=== PATIENT | male | born 1935 | race Caucasian/White ===

== ENCOUNTER 2018-04-16 15:00 | Inpatient (IN) ==
[2018-04-16] MEDS ORDERED: LORazepam 0.5 MG Tablet PO PRN (22:13)
[2018-04-17] MEDS: Carvedilol 6.25 MG Tablet PO SCH ×3 (00:01→22:48)
[2018-04-17] MEDS: Ampicillin/Sulbactam Inj 1,500 MG in Sodium Chloride 0.9% Inj 100 ML IV.SIG SCH ×4 (00:01→18:40)
[2018-04-17] MEDS: Melatonin 5 MG Tablet PO SCH ×2 (00:02→22:50)
[2018-04-17 00:06] LABS: Troponin I 0.2 ng/mL (0.02-0.05)
[2018-04-17 01:35] LABS: Calcium 8.4 mg/dL (8.5-10.1); Magnesium 2.4 mg/dL (1.5-2.5); Potassium 4.6 meq/L (3.5-5.1)
[2018-04-17 01:45] LABS: Carbon Dioxide 26.5 meq/L (21.0-32.0)
[2018-04-17] MEDS ORDERED: Metoprolol Tartrate 25 MG Tablet PO ONE (04:04)
[2018-04-17 04:39] LABS: Baso # (Auto) 0.1 th/mm3 (0.0-0.2); Baso % (Auto) 0.7 % (0.0-2.0); Eos % (Auto) 0.3 % (0.0-4.0); Hematocrit 30.4 % (39.0-51.0); Hemoglobin 10.3 gm/dL (13.0-17.0); Lymph # (Auto) 0.4 th/mm3 (1.0-4.8); Lymph % (Auto) 5.1 % (9.0-44.0); Mean Corpuscular HGB Conc 33.8 % (32.0-36.0); Mean Corpuscular Hemoglobin 30.7 pg (27.0-34.0); Mean Corpuscular Volume 90.8 fL (80.0-100.0); Mean Platelet Volume 7.4 fL (7.0-11.0); Mono # (Auto) 0.9 th/mm3 (0.0-0.9); Mono % (Auto) 10.6 % (0.0-8.0); Neut # (Auto) 7.1 th/mm3 (1.8-7.7); Neut % (Auto) 83.3 % (16.0-70.0); Platelet Count 425 th/mm3 (150-450); Red Blood Count 3.35 mil/mm3 (4.50-5.90); Red Cell Distribution Width 14.3 % (11.6-17.2); White Blood Count 8.5 th/mm3 (4.0-11.0)
[2018-04-17 05:07] LABS: Calcium 8.8 mg/dL (8.5-10.1); Carbon Dioxide 27.6 meq/L (21.0-32.0); Potassium 4.9 meq/L (3.5-5.1)
[2018-04-17 05:10] LABS: Troponin I 0.19 ng/mL (0.02-0.05)
[2018-04-17] MEDS: Isosorbide Mononitrate 30 MG ER 24HR Tablet (Imdur) PO SCH (06:25)
[2018-04-17] MEDS: Famotidine 20 MG Tablet PO SCH ×2 (08:34→22:49)
[2018-04-17] MEDS: Sodium Bicarbonate 650 MG Tablet PO SCH ×3 (08:34→18:41)
[2018-04-17] MEDS: Nystatin Liq 500,000 UNIT/5 ML UDC SWISH-SWAL SCH ×4 (08:34→22:49)
[2018-04-17] MEDS: amLODIPine 5 MG Tablet PO SCH (08:35)
[2018-04-17] MEDS: Senna/Docusate Sodium 8.6/50 MG Tablet PO SCH ×2 (08:35→22:50)
[2018-04-17] MEDS: Lisinopril 5 MG Tablet PO SCH (08:35)
[2018-04-17] MEDS: Heparin - SQ 10,000 UNITS/ML Vial SQ SCH ×2 (08:36→22:49)
[2018-04-17] MEDS ORDERED: Gabapentin 100 MG Capsule PO SCH (09:00)
[2018-04-17] MEDS ORDERED: Insulin Detemir Inj 1,000 UNIT/10 ML Vial SQ SCH (09:00)
--- NOTE | 2018-04-17 13:26 | XR ---
EXAM DATE: 04/17/2018 9:43 AM EDT AGE/SEX: 82 years / Male INDICATIONS: Short of breath. CLINICAL DATA: This is the patient's subsequent encounter. Patient reports that signs and symptoms h ave been present for 1 week and indicates a pain score of 0/10. MEDICAL/SURGICAL HISTORY: Hypertension. diabetes, shingles . Pacemaker. aortic valve replaceme nt COMPARISON: [facility], CHEST 1V SINGLE AP, 04/16/2018. . FINDINGS: Persistent bilateral effusions and patchy consolidation in the lower lobes. Median sternotomy wires a nd pacer device again seen. Cardiomegaly. CONCLUSION: Stable appearance of the chest. Electronically signed by: Syed Rosario MD 04/17/2018 9:46 AM EDT
--- NOTE | 2018-04-17 13:58 | P.HP ---
History of Present Illness Primary Care Physician: UNKNOWN History of Present Illness: 82-year-old male with a history of CHF, type 2 diabetes, TAVR procedure on 2017 was transferred from [facility] back to the hospital due to increased shortness of breath, chest pain, altered mental status. His TAVR procedure on came with complications, reports that he had to be resuscitated on the table more than once and that afterwards he had evidence that he suffered a stroke. He has had recurrent pulmonary edema, particularly in the right lung, paracentesis was performed yesterday. His reports that he received some tramadol overnight the night before last and that he has not been himself since then. Patient himself is a poor historian. There is no complaint of nausea vomiting or diarrhea. No new rash, no head trauma. Inpatient Certification: I certify that the inpatient services were ordered in accordance with Medicare regulations governing the order. This includes certification that hospital inpatient services are reasonable and necessary and in the case of services not specified as inpatient-only under 42 CFR 419.22(n), that they are appropriately provided as inpatient services in accordance to with the 2-midnight benchmark under 43 CFR 412.3(e) Estimated Total Length of Stay (Days): 3 Plans for Post Hospital Care: Other Review of Systems All other systems reviewed negative except as stated in HPI [facility] - History History Provided By: Family Member, Medical Record - Medical History Medical History: Medical History (Last Updated 04/14/18 @ 17:56 by Tigre Maria) CAD (coronary artery disease) CHF (congestive heart failure) CVA (cerebral vascular accident) Chronic kidney disease Diabetes Hyperlipidemia Hypertension Shingles - Surgical History Surgical History: Surgical History (Last Updated 04/14/18 @ 11:55 by Tigre Maria) Hx of CABG S/P TAVR (transcatheter aortic valve replacement) Status post placement of cardiac pacemaker - Family History Family History: Family History (Last Updated 04/14/18 @ 17:25 by Tigre Maria) Father Coronary artery disease Mother Diabetes mellitus - Tobacco History Second Hand Smoke Exposure: No Tobacco Use In Past 30 Days: No Smoking Status: Former smoker Tobacco Type: Cigarettes - Alcohol History How Often Do You Have a Drink Containing Alcohol: Never - Substance Use History Substance History: No History of Abuse - Travel History Recent Travel in the [facility] Within the Last 8 Weeks: No Recent Travel Out of the Country Within the Last 8 Weeks: No Medications and Allergies Active Medications: Active Medications Acetaminophen (Tylenol) 650 mg PO Q4H PRN PRN Reason: Temp > 100.4 Al Hydroxide/Mg Hydroxide (Milk Of Magnjazmyne Liq) 30 ml PO Q12H PRN PRN Reason: Mild Constipation Albuterol (Duoneb Neb (Prn)) 1 ampul NEB Q4HR NEB PRN PRN Reason: sob Amlodipine Besylate (Norvasc) 2.5 mg PO DAILY [facility] Last Admin: 04/17/18 08:35 Dose: 2.5 mg Aspirin (Aspirin Chew) 81 mg PO DAILY [facility] Last Admin: 04/17/18 08:35 Dose: 81 mg Carvedilol (Coreg) 6.25 mg PO BID [facility] Last Admin: 04/17/18 08:35 Dose: 6.25 mg Clopidogrel Bisulfate (Plavix) 75 mg PO DAILY [facility] Last Admin: 04/17/18 08:35 Dose: 75 mg Famotidine (Pepcid) 10 mg PO BID [facility] Last Admin: 04/17/18 08:34 Dose: 10 mg Furosemide (Lasix Inj) 40 mg IV.PUSH BID@0900,1800 [facility] Last Admin: 04/17/18 08:34 Dose: 40 mg Furosemide (Lasix Inj) 20 mg IV.PUSH BID@0900,1800 [facility] Last Admin: 04/17/18 08:10 Dose: Not Given Gabapentin (Neurontin) 200 mg PO DAILY [facility] Last Admin: 04/17/18 08:35 Dose: 200 mg Heparin Sodium (Porcine) (Heparin Inj) 5,000 units SQ Q12HR [facility] Last Admin: 04/17/18 08:36 Dose: 5,000 units Hydrophilic Ointment (Aquaphor Oint) 1 applicatio TOPICAL BID [facility] Last Admin: 04/17/18 08:36 Dose: 1 applicatio Ampicillin Sodium/Sulbactam Sodium 1,500 mg/ Sodium Chloride 100 mls @ 200 mls/ hr IV.SIG Q6H [facility] Last Admin: 04/17/18 12:21 Dose: 200 mls/hr Insulin Detemir (Levemir Inj) 10 unit SQ DAILY [facility] Last Admin: 04/17/18 08:36 Dose: 10 unit Isosorbide Mononitrate (Imdur) 30 mg PO DAILY@0700 [facility] Last Admin: 04/17/18 06:25 Dose: 30 mg Lactulose (Lactulose Liq) 30 ml PO DAILY PRN PRN Reason: Severe Consitipation Lisinopril (Prinivil) 5 mg PO DAILY [facility] Last Admin: 04/17/18 08:35 Dose: 5 mg Lorazepam (Ativan) 0.5 mg PO Q6H PRN PRN Reason: Anxiety Last Admin: 04/17/18 00:02 Dose: 0.5 mg Melatonin (Melatonin) 5 mg PO HS [facility] Last Admin: 04/17/18 00:02 Dose: 5 mg Nystatin (Mycostatin Liq) 5 ml SWISH-SWAL QID [facility] Last Admin: 04/17/18 12:22 Dose: 5 ml Ondansetron HCl (Zofran Inj) 4 mg IV.PUSH Q6H PRN PRN Reason: NAUSEA OR VOMITING Senna/Docusate Sodium (Tea-Colace) 1 tab PO BID [facility] Last Admin: 04/17/18 08:35 Dose: 1 tab Sennosides (Senokot) 17.2 mg PO Q12H PRN PRN Reason: Moderate Constipation Sodium Bicarbonate (Sodium Bicarbonate) 650 mg PO TIDPC [facility] Last Admin: 04/17/18 12:33 Dose: 650 mg Tamsulosin HCl (Flomax) 0.4 mg PO DAILY [facility] Last Admin: 04/17/18 08:35 Dose: 0.4 mg Allergies Allergy/AdvReac Type Severity Reaction Status Date / Time meperidine [From Demerol] Allergy Intermediate Hallucinati Verified 04/08/18 15: 38 ons codeine AdvReac Intermediate HALLUCINATI Verified 04/08/18 15:38 ON Home Medications Medication Instructions Recorded Confirmed Type dextran 70-hypromellose 1 drp LEFT EYE QID PRN 04/08/18 04/08/18 History [Artificial Tears (PF)] Exam Vital signs: Vital Signs 04/16/18 20:00 04/16/18 20:48 04/17/18 00:00 Temperature 98.9 F 98.5 F Pulse Rate 101 H 100 H 99 H Respiratory Rate 22 17 Blood Pressure 166/87 H 180/90 H Pulse Oximetry 94 L 96 04/17/18 04:00 04/17/18 08:00 04/17/18 11:44 Temperature 97.4 F L 97.7 F Pulse Rate 93 H 85 Respiratory Rate 17 22 Blood Pressure 160/77 H 127/71 Pulse Oximetry 92 L 96 96 Intake & Output 04/16/18 04/17/18 04/17/18 18:59 06:59 18:59 Intake Total 200 / 200 Output Total 1000 / 1000 Balance -800 / -800 Weight 75.4 kg Intake: IV 200 / 200 Unasyn Inj 1,500 MG In NS Inj 200 / 200 100 ML @ 200 mls/hr IV.SIG Q6H DIVYA Rx#:[id number] Output: Urine 1000 / 1000 Other: Weight On Admission 75 kg Narrative: GENERAL: Sleepy but arousable, oriented 2, tachypnea, weak appearing SKIN: Warm and dry, no rashes. HEAD: Atraumatic. Normocephalic. EYES: Pupils equal, round, reactive to light. No scleral icterus. No injection or drainage. ENT: No nasal bleeding or discharge. Moist mucous membranes. Nonerythematous oropharynx. NECK: Trachea midline. No JVD. Thyroid size within normal limits. CARDIOVASCULAR: Borderline tachycardia, sinus rhythm. No murmur, no gallops, no rubs. RESPIRATORY: Clear and equal to auscultation bilaterally. Mild atelectasis in bases. No accessory muscle use. GASTROINTESTINAL: Abdomen soft, non-tender, nondistended, normal active bowel sounds. Hepatic and splenic margins not palpable. MUSCULOSKELETAL: Extremities without clubbing or cyanosis. No obvious deformities. No edema. NEUROLOGICAL: Mostly sleepy, arousable, left subtle facial droop, right-sided weakness from previous stroke PSYCHIATRIC: Confused off his baseline according to his Results - Labs CBC & Chem 7: 04/17/18 03:25 04/17/18 03:25 Labs: Laboratory Results - last 24 hr 04/16/18 04/16/18 04/16/18 21:11 23:02 23:02 WBC RBC Hgb Hct MCV MCH MCHC RDW Plt Count MPV Neut % (Auto) Lymph % (Auto) Mckean % (Auto) Eos % (Auto) Baso % (Auto) Neut # (Auto) Lymph # (Auto) Mckean # (Auto) Eos # (Auto) Baso # (Auto) WBC Differential Differential Comment D-Dimer Quant (PE/DVT) Sodium 139 Cancelled Potassium 4.6 Cancelled Chloride 103 Cancelled Carbon Dioxide 26.5 Cancelled Anion Gap 10 Cancelled BUN 54 H Cancelled Creatinine 1.92 H Cancelled Estimated GFR 34 L Cancelled POC Glucose 272 H Random Glucose 265 H Cancelled Calcium 8.4 L Cancelled Magnesium 2.4 Cancelled Total Creatine Kinase 65 Troponin I 0.20 H B-Natriuretic Peptide 04/17/18 04/17/18 04/17/18 03:25 03:25 03:25 WBC 8.5 RBC 3.35 L Hgb 10.3 L Hct 30.4 L MCV 90.8 MCH 30.7 MCHC 33.8 RDW 14.3 Plt Count 425 MPV 7.4 Neut % (Auto) 83.3 H Lymph % (Auto) 5.1 L Mckean % (Auto) 10.6 H Eos % (Auto) 0.3 Baso % (Auto) 0.7 Neut # (Auto) 7.1 Lymph # (Auto) 0.4 L Mckean # (Auto) 0.9 Eos # (Auto) 0.0 Baso # (Auto) 0.1 WBC Differential . Differential Comment Auto diff final D-Dimer Quant (PE/DVT) Sodium 139 Potassium 4.9 Chloride 102 Carbon Dioxide 27.6 Anion Gap 9 BUN 52 H Creatinine 1.97 H Estimated GFR 33 L POC Glucose Random Glucose 270 H Calcium 8.8 Magnesium Total Creatine Kinase 66 Troponin I 0.19 H B-Natriuretic Peptide 3650 H 04/17/18 04/17/18 04/17/18 04:31 07:59 10:17 WBC RBC Hgb Hct MCV MCH MCHC RDW Plt Count MPV Neut % (Auto) Lymph % (Auto) Mckean % (Auto) Eos % (Auto) Baso % (Auto) Neut # (Auto) Lymph # (Auto) Mckean # (Auto) Eos # (Auto) Baso # (Auto) WBC Differential Differential Comment D-Dimer Quant (PE/DVT) 2.92 H Sodium Potassium Chloride Carbon Dioxide Anion Gap BUN Creatinine Estimated GFR POC Glucose 287 H 293 H Random Glucose Calcium Magnesium Total Creatine Kinase Troponin I B-Natriuretic Peptide 04/17/18 12:17 WBC RBC Hgb Hct MCV MCH MCHC RDW Plt Count MPV Neut % (Auto) Lymph % (Auto) Mckean % (Auto) Eos % (Auto) Baso % (Auto) Neut # (Auto) Lymph # (Auto) Mckean # (Auto) Eos # (Auto) Baso # (Auto) WBC Differential Differential Comment D-Dimer Quant (PE/DVT) Sodium Potassium Chloride Carbon Dioxide Anion Gap BUN Creatinine Estimated GFR POC Glucose 327 H Random Glucose Calcium Magnesium Total Creatine Kinase Troponin I B-Natriuretic Peptide - Imaging Impressions Chest X-Ray 04/17/18 00:00 CONCLUSION: Stable appearance of the chest. Caprini VTE Risk Assessment Caprini VTE Risk Assessment: Moderate/High Risk (score >= 2) Caprini Risk Assessment Model: Point Value = 1 Point Value = 2 Point Value = 3 Point Value = 5 Age 41-60 Minor surgery BMI > 25 kg/m2 Swollen legs Varicose veins or History of unexplained or recurrent spontaneous Oral contraceptives or hormone replacement Sepsis (< 1 month) Serious lung disease, including pneumonia (< 1 month) Abnormal pulmonary function Acute myocardial infarction Congestive heart failure (< 1 month) History of inflammatory bowel disease Medical patient at bed rest Age 61-74 Arthroscopic surgery Major open surgery (> 45 min) Laparoscopic surgery (> 45 min) Malignancy Confined to bed (> 72 hours) Immobilizing plaster cast Central venous access Age >= 75 History of VTE Family history of VTE Factor V Leiden Prothrombin [id number] Lupus anticoagulant Anticardiolipin antibodies Elevated serum homocysteine Heparin-induced thrombocytopenia Other congenital or acquired thrombophilia Stroke (< 1 month) Elective arthroplasty Hip, pelvis, or leg fracture Acute spinal cord injury (< 1 month) Prophylaxis Regimen: Total Risk Factor Score Risk Level Prophylaxis Regimen 0-1 Low Early ambulation 2 Moderate Order ONE of the following: *Sequential Compression Device (SCD) *Heparin 5000 units SQ BID 3-4 Higher Order ONE of the following medications: *Heparin 5000 units SQ TID *Enoxaparin/Lovenox 40 mg SQ daily (WT < 150 kg, CrCl > 30 mL/min) *Enoxaparin/Lovenox 30 mg SQ daily (WT < 150 kg, CrCl > 10-29 mL/min) *Enoxaparin/Lovenox 30 mg SQ BID (WT < 150 kg, CrCl > 30 mL/min) AND/OR *Sequential Compression Device (SCD) 5 or more Highest Order ONE of the following medications: *Heparin 5000 units SQ TID (Preferred with Epidurals) *Enoxaparin/Lovenox 40 mg SQ daily (WT < 150 kg, CrCl > 30 mL/min) *Enoxaparin/Lovenox 30 mg SQ daily (WT < 150 kg, CrCl > 10-29 mL/min) *Enoxaparin/Lovenox 30 mg SQ BID (WT < 150 kg, CrCl > 30 mL/min) AND *Sequential Compression Device (SCD) Assessment and Plan - Plan 82-year-old male with significant history of CAD, CABG in 1987, CHF, DM, status post TAVR at [facility] on 03/30 for symptomatic aortic stenosis with complications of intraoperative cardiac arrest, respiratory failure, pneumonia. Clinically improved and now admitted to [facility] for comprehensive rehabilitation. Consulted for assistance with medical management. Tachypnea and dyspnea Previously admitted for respiratory failure Echo shows EF of 20% BNP on 820 was greater than 35,000, now down to 987, now up to 3000s Repeat chest x-ray showed worsening consolidation and thoracentesis was performed yesterday for right pleural effusion, 1000 cc removed Covered for aspiration pneumonia with Augmentin and now Unasyn No leukocytosis no fever Continue Lasix 40 mg twice daily Continue Coreg and KIERAN inhibitor Continue oxygen Appreciate pulmonology consulting Appreciate palliative care following Repeat chest x-ray Obtain d-dimer s/p T AVR/cardiac arrest 2 03/30/2018 Previously patient had PPD for symptomatic bradycardia CABG 4 in 1987 Left VICE PRESIDENT MEDIA RELATIONS CVA, 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 Procedure Moderate left facial and right-sided deficits, exam compromised due to patient' s altered state Continue rehab efforts when discharged back to [facility] Acute on chronic renal disease According to records baseline creatinine is 1.6, now elevated due to aggressive diuresis Follow creatinine trend closely, avoid nephrotoxins Appreciate nephrology consult Type 2 diabetes Continue Levemir 10 units daily, blood sugar is well controlled Diabetic diet h/o recurrent chest pain Recent cardiac surgery for TAVR procedure Continue Imdur 30 mg daily Follow for troponins trend h/o hyperkalemia Follow with daily labs Urinary retention History of penile implant [place] recently discontinued, urine cultures negative Straight cath as needed Continue Flomax DVT Prophylaxis Heparin Code Status: Patient's requests DNI, but allows DNR
--- NOTE | 2018-04-17 16:28 | NM ---
EXAM DATE: 04/17/2018 4:09 PM EDT AGE/SEX: 82 years / Male INDICATIONS: Dyspnea. CLINICAL DATA: This is the patient's initial encounter. Patient reports that signs and symptoms have been present for 1 day and indicates a pain score of 0/10. MEDICAL/SURGICAL HISTORY: Congestive heart failure. Cerebrovascular disease. Diabetes mellitu s type II. Hypertension. CABG. Pacemaker. COMPARISON: No prior exams available for comparison. DOSE: 0.9 mCi Tc99m DTPA aerosol 8.7 mCi Tc99m MAA IV TECHNIQUE: Following five minutes of tidal breathing of DTPA aerosol, planar images of the lungs wer e performed in eight projections. The patient was then injected with MAA, and eight-view perfusion s can was performed. FINDINGS: The perfusion images are unremarkable. There is patchy ventilation bilaterally characteristic of yeimi a or pneumonia seen on the chest radiograph. The ventilation is significantly worse than perfusion. CONCLUSION: 1. Low probability of pulmonary embolism Electronically signed by: Manuel Burton MD 04/17/2018 4:26 PM EDT
--- NOTE | 2018-04-17 18:23 | P.PNCA ---
Subjective Interval history: Resting in bed with labored breathing. O2 6L NC. Somnolent. at bedside. Reports he has opened eyes and responded to her some today. Physical Exam Vital signs: Vital Signs 04/16/18 20:00 04/16/18 20:48 04/17/18 00:00 Temperature 98.9 F 98.5 F Pulse Rate 101 H 100 H 99 H Respiratory Rate 22 17 Blood Pressure 166/87 H 180/90 H Pulse Oximetry 94 L 96 04/17/18 04:00 04/17/18 08:00 04/17/18 11:44 Temperature 97.4 F L 97.7 F Pulse Rate 93 H 85 Respiratory Rate 17 22 Blood Pressure 160/77 H 127/71 Pulse Oximetry 92 L 96 96 04/17/18 12:00 04/17/18 16:00 Temperature 97.7 F 98.2 F Pulse Rate 83 83 Respiratory Rate 20 20 Blood Pressure 157/73 H 120/69 Pulse Oximetry 97 100 Intake & Output 04/16/18 04/17/18 04/17/18 18:59 06:59 18:59 Intake Total 200 / 200 700 / 700 Output Total 1000 / 1000 Balance -800 / -800 700 / 700 Weight 75.4 kg Intake: IV 200 / 200 100 / 100 Unasyn Inj 1,500 MG In NS Inj 200 / 200 100 / 100 100 ML @ 200 mls/hr IV.SIG Q6H DIVYA Rx#:[id number] Oral 600 / 600 Output: Urine 1000 / 1000 Other: # Voids 4 Weight On Admission 75 kg Narrative: GENERAL: Somnolent. Tachypnea, labored breathing, weak appearing SKIN: Warm and dry, no rashes. HEAD: Atraumatic. Normocephalic. EYES: L Pupil equal, round, reactive to light. R eye blindness. No scleral icterus. No injection or drainage. ENT: No nasal bleeding or discharge. Moist mucous membranes. Nonerythematous oropharynx. NECK: Trachea midline. No JVD. CARDIOVASCULAR: Regular rate, rhythm, sinus rhythm. Flow murmur over the aortic valve, no gallops, no rubs. RESPIRATORY: Clear and equal to auscultation bilaterally. Decreased bases. Using abdominal muscles. GASTROINTESTINAL: Abdomen soft, non-tender, nondistended, normal active bowel sounds. MUSCULOSKELETAL: Extremities without clubbing or cyanosis. No obvious deformities. No edema. NEUROLOGICAL: Somnolent, BUE weakness. PSYCHIATRIC: Somolent - Urinary Catheter Management Indwelling Urethral Catheter Cath placed during this visit: yes Reason for continuing: Acute urinary retention Insertion date: 04/16/18 Insertion time: 21:00 Assessment and Plan - Assessment (1) CHF (congestive heart failure) Code(s): I50.9 - Heart failure, unspecified Status: Acute (2) CAD (coronary artery disease) Code(s): I25.10 - Atherosclerotic heart disease of [place] coronary artery without angina pectoris Status: Acute (3) Respiratory insufficiency Code(s): R06.89 - Other abnormalities of breathing Status: Acute (4) Acute cerebrovascular accident (CVA) of cerebellum Code(s): I63.9 - Cerebral infarction, unspecified Status: Acute (5) [id number] kidney injury Code(s): N17.9 - Acute kidney failure, unspecified; N18.9 - Chronic kidney disease, unspecified Status: Acute - Plan Transfer to ICU. Will check ABG. Continue diuresis. Monitor BNP. Nutrition consult. Dr. Truong discussed with Dr. Reynolds. Dr. Nieto to cover the weekend. Pt. seen and examined. will transfer to ICU. Will diurese. Aspiration precautions. Nutrition will be addressed. Code Status: DNR Discussed Condition With: Dr. TRUONG (2) CAD (coronary artery disease) Qualifiers: Coronary Disease-Associated Artery/Lesion type: [place] artery [place] vs. transplanted heart: [place] heart Associated angina: without angina Qualified Code(s): I25.10 - Atherosclerotic heart disease of [place] coronary artery without angina pectoris
[2018-04-17 20:53] LABS: ABG Base Excess 4.2 mmol/L (-2-2); ABG PCO2 43 mmHg (38-42); ABG PO2 144 mmHG (61-120)
[2018-04-18] MEDS: Ampicillin/Sulbactam Inj 1,500 MG in Sodium Chloride 0.9% Inj 100 ML IV.SIG SCH ×3 (01:27→11:45)
[2018-04-18 05:49] LABS: Hematocrit 25.4 % (39.0-51.0); Hemoglobin 8.3 gm/dL (13.0-17.0); Mean Corpuscular HGB Conc 32.7 % (32.0-36.0); Mean Corpuscular Hemoglobin 30.3 pg (27.0-34.0); Mean Corpuscular Volume 92.8 fL (80.0-100.0); Mean Platelet Volume 7.3 fL (7.0-11.0); Platelet Count 350 th/mm3 (150-450); Red Blood Count 2.74 mil/mm3 (4.50-5.90); Red Cell Distribution Width 14.3 % (11.6-17.2); White Blood Count 5.5 th/mm3 (4.0-11.0)
[2018-04-18 05:55] LABS: Calcium 8.1 mg/dL (8.5-10.1); Carbon Dioxide 29.4 meq/L (21.0-32.0); Potassium 4.4 meq/L (3.5-5.1)
[2018-04-18] MEDS: Isosorbide Mononitrate 30 MG ER 24HR Tablet (Imdur) PO SCH (06:07)
--- NOTE | 2018-04-18 07:57 | P.PNIM ---
Subjective Interval history: Follow-up for shortness of breath Patient more alert, awake, oriented to self and place, shortness of breath better than yesterday, denies any chest pain or palpitations. Physical Exam Vital signs: Vital Signs 04/17/18 08:00 04/17/18 11:44 04/17/18 12:00 Temperature 97.7 F 97.7 F Pulse Rate 87 79 Respiratory Rate 22 20 Blood Pressure 127/71 157/73 H Pulse Oximetry 96 96 97 04/17/18 16:00 04/17/18 20:00 04/17/18 21:46 Temperature 98.2 F 98 F Pulse Rate 81 79 Respiratory Rate 20 20 Blood Pressure 120/69 141/59 H Pulse Oximetry 100 100 98 04/18/18 00:00 04/18/18 04:00 04/18/18 04:48 Temperature 97.6 F 97.9 F Pulse Rate 89 80 Respiratory Rate 22 22 20 Blood Pressure 162/73 H 130/59 L Pulse Oximetry 95 96 Intake & Output 04/17/18 04/18/18 04/18/18 18:59 06:59 18:59 Intake Total 100 / 100 300 / 300 100 / 100 Output Total 800 / 800 1400 / 1400 850 / 850 Balance -700 / -700 -1100 / -1100 -750 / -750 Weight 74 kg Intake: IV 100 / 100 300 / 300 Unasyn Inj 1,500 MG In NS Inj 100 / 100 300 / 300 100 ML @ 200 mls/hr IV.SIG Q6H DIVYA Rx#:[id number] Oral 100 / 100 Output: Urine 800 / 800 850 / 850 Urine Amount (Catheter) 1400 / 1400 Indwelling Urethral Catheter 1400 / 1400 Other: Date of Last Bowel Movement 04/17/18 04/18/18 # Incontinent Bowel Movements 2 Narrative: Not in distress, alert, awake Pupils equal round reactive, anicteric Moist mucosa Regular rate and rhythm, positive murmur Clear breath sounds, decreased at bases, no crackles Abdomen soft nontender, nondistended No edema lower extremities, +1+ edema left forearm Alert, awake, oriented to self and place. - Urinary Catheter Management Indwelling Urethral Catheter Cath placed during this visit: yes Reason for continuing: Acute urinary retention Insertion date: 04/16/18 Insertion time: 21:00 Results - Labs CBC & Chem 7: 04/18/18 05:00 04/18/18 05:00 Laboratory Results - last 24 hr 04/17/18 04/17/18 04/17/18 07:59 10:17 12:17 WBC RBC Hgb Hct MCV MCH MCHC RDW Plt Count MPV D-Dimer Quant (PE/DVT) 2.92 H Puncture Site Patient Temperature O2 Saturation ABG pH ABG pCO2 ABG pO2 ABG HCO3 ABG O2 Content ABG Base Excess ABG Methemoglobin Fer Test Hemoglobin Carboxyhemoglobin O2 Delivery Device Liter Flow Inspired O2 Critical Value Sodium Potassium Chloride Carbon Dioxide Anion Gap BUN Creatinine Estimated GFR POC Glucose 293 H 327 H Random Glucose Calcium B-Natriuretic Peptide 04/17/18 04/17/18 04/18/18 17:38 20:00 05:00 WBC RBC Hgb Hct MCV MCH MCHC RDW Plt Count MPV D-Dimer Quant (PE/DVT) Puncture Site Right radial Patient Temperature 98.6 O2 Saturation 96 ABG pH 7.43 H ABG pCO2 43 H ABG pO2 144 H ABG HCO3 28 H ABG O2 Content 12.3 ABG Base Excess 4.2 H ABG Methemoglobin 1.2 Fer Test + Hemoglobin 8.9 L Carboxyhemoglobin 1.6 O2 Delivery Device Nasal cannula Liter Flow 4.00 Inspired O2 0 Critical Value No Sodium 144 Potassium 4.4 Chloride 105 Carbon Dioxide 29.4 Anion Gap 10 BUN 57 H Creatinine 2.02 H Estimated GFR 32 L POC Glucose 263 H Random Glucose 212 H Calcium 8.1 L B-Natriuretic Peptide 04/18/18 04/18/18 05:00 05:00 WBC 5.5 RBC 2.74 L Hgb 8.3 L D Hct 25.4 L MCV 92.8 MCH 30.3 MCHC 32.7 RDW 14.3 Plt Count 350 MPV 7.3 D-Dimer Quant (PE/DVT) Puncture Site Patient Temperature O2 Saturation ABG pH ABG pCO2 ABG pO2 ABG HCO3 ABG O2 Content ABG Base Excess ABG Methemoglobin Fer Test Hemoglobin Carboxyhemoglobin O2 Delivery Device Liter Flow Inspired O2 Critical Value Sodium Potassium Chloride Carbon Dioxide Anion Gap BUN Creatinine Estimated GFR POC Glucose Random Glucose Calcium B-Natriuretic Peptide 2290 H - Imaging Impressions Chest X-Ray 04/17/18 00:00 CONCLUSION: Stable appearance of the chest. Pulmonary Perfusion Imaging 04/17/18 00:00 CONCLUSION: 1. Low probability of pulmonary embolism Assessment and Plan - Plan 82-year-old male with significant history of CAD, CABG in 1987, CHF, DM, status post TAVR at [facility] on 03/30 for symptomatic aortic stenosis with complications of intraoperative cardiac arrest, respiratory failure, pneumonia. Clinically improved and now admitted to [place] for comprehensive rehabilitation, transferred to the hospital for shortness of breath and altered mental status. Pneumonia versus systolic congestive heart failure exacerbation - Previously admitted for respiratory failure, Echo shows EF of 20% elevated BNPs, Repeat chest x-ray showed worsening consolidation on the left and bilateral pleural effusion, s/p thoracentesis for right pleural effusion, 1000 cc removed -Continue Unasyn for now, no leukocytosis, duonebs, recheck chest x-ray, if negative, stop Unasyn. -Cont lasix IV BID, coreg, lisinopril, aspirin, Imdur, Plavix oxygen support s/p T AVR/cardiac arrest 2 03/30/2018, CAD Previously patient had PPD for symptomatic bradycardia, CABG 4 in 1987, medications as above. Previous chest pain, troponins flat, peaked at 0.2. 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 Hypertension-continue Norvasc Altered mental status-likely toxic metabolic encephalopathy from hypoxemia, stop tramadol and Ativan. Monitor. Improving. Acute on chronic renal disease -According to records baseline creatinine is 1.6, now elevated due to aggressive diuresis versus cardiorenal, reconsult nephrology. Recheck BMP tomorrow. Type 2 diabetes-blood glucose elevated, increase Levemir to 14 units daily, continue diabetic diet. Urinary retention - History of penile implant. Badillo recently discontinued, urine cultures negative, Straight cath as needed, Continue Flomax DVT Prophylaxis Heparin Code Status: Patient's requests DNI, but allows DNR, palliative care was following Discharge back to [facility] rehab when ready.
--- NOTE | 2018-04-18 08:48 | P.PNCA ---
Subjective Interval history: No changes overnight. Lying flat comfortably. No distress. Physical Exam Vital signs: Vital Signs 04/17/18 11:44 04/17/18 12:00 04/17/18 16:00 Temperature 97.7 F 98.2 F Pulse Rate 79 81 Respiratory Rate 20 20 Blood Pressure 157/73 H 120/69 Pulse Oximetry 96 97 100 04/17/18 20:00 04/17/18 21:46 04/18/18 00:00 Temperature 98 F 97.6 F Pulse Rate 79 89 Respiratory Rate 20 22 Blood Pressure 141/59 H 162/73 H Pulse Oximetry 100 98 95 04/18/18 04:00 04/18/18 04:48 04/18/18 07:00 Temperature 97.9 F Pulse Rate 80 79 Respiratory Rate 22 20 Blood Pressure 130/59 L Pulse Oximetry 96 Intake & Output 04/17/18 04/18/18 04/18/18 18:59 06:59 18:59 Intake Total 100 / 100 300 / 300 100 / 100 Output Total 800 / 800 1400 / 1400 850 / 850 Balance -700 / -700 -1100 / -1100 -750 / -750 Weight 74 kg Intake: IV 100 / 100 300 / 300 Unasyn Inj 1,500 MG In NS Inj 100 / 100 300 / 300 100 ML @ 200 mls/hr IV.SIG Q6H DIVYA Rx#:[id number] Oral 100 / 100 Output: Urine 800 / 800 850 / 850 Urine Amount (Catheter) 1400 / 1400 Indwelling Urethral Catheter 1400 / 1400 Other: Date of Last Bowel Movement 04/17/18 04/18/18 # Incontinent Bowel Movements 2 - Constitutional no acute distress - Routine Neck Exam Present: supple - Routine Respiratory Exam Present: CTA bilaterally - Routine Cardiovascular Exam Present: RRR, S1, S2, murmur - Routine Skin Exam Present: intact - Routine Neurological Exam Present: alert, motor deficit - Urinary Catheter Management Indwelling Urethral Catheter Cath placed during this visit: yes Reason for continuing: Acute urinary retention Insertion date: 04/16/18 Insertion time: 21:00 Assessment and Plan - Assessment (1) CHF (congestive heart failure) Code(s): I50.9 - Heart failure, unspecified Status: Acute (2) Diabetes Code(s): E11.9 - Type 2 diabetes mellitus without complications Status: Acute (3) History of CVA (cerebrovascular accident) Code(s): Z86.73 - Personal history of transient ischemic attack (TIA), and cerebral infarction without residual deficits Status: Acute (4) S/P TAVR (transcatheter aortic valve replacement) Code(s): Z95.2 - Presence of prosthetic heart valve Status: Acute (5) CKD (chronic kidney disease) Code(s): N18.9 - Chronic kidney disease, unspecified Status: Chronic (6) History of permanent cardiac pacemaker placement Code(s): Z95.0 - Presence of cardiac pacemaker Status: Acute (7) Hx of CABG Code(s): Z95.1 - Presence of aortocoronary bypass graft Status: Acute - Plan Continue diuresis. Monitor tele. Nutrition consult. Supportive care. Family requests DNI. Will diurese. Aspiration precautions. Nutrition will be addressed. 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
[2018-04-18] MEDS: Heparin - SQ 10,000 UNITS/ML Vial SQ SCH ×2 (09:07→21:39)
[2018-04-18] MEDS: Carvedilol 6.25 MG Tablet PO SCH ×2 (09:07→21:31)
[2018-04-18] MEDS: amLODIPine 5 MG Tablet PO SCH (09:08)
[2018-04-18] MEDS: Lisinopril 5 MG Tablet PO SCH (09:08)
[2018-04-18] MEDS: Sodium Bicarbonate 650 MG Tablet PO SCH ×3 (09:08→17:56)
[2018-04-18] MEDS: Famotidine 20 MG Tablet PO SCH ×2 (09:08→21:32)
[2018-04-18] MEDS: Nystatin Liq 500,000 UNIT/5 ML UDC SWISH-SWAL SCH ×4 (09:08→21:31)
[2018-04-18] MEDS: Senna/Docusate Sodium 8.6/50 MG Tablet PO SCH ×2 (09:12→21:32)
--- NOTE | 2018-04-18 09:35 | XR ---
EXAM DATE: 04/18/2018 9:32 AM EDT AGE/SEX: 82 years / Male INDICATIONS: Shortness of breath. CLINICAL DATA: This is the patient's subsequent encounter. Patient reports that signs and symptoms h ave been present for 4 - 6 days and indicates a pain score of 0/10. MEDICAL/SURGICAL HISTORY: Congestive heart failure. Diabetes. Hypertension. Coronary artery disease. CVA. Pacemaker. CABG. Trans-catheter aortic valve replacement. COMPARISON: [facility] [place]ST 1V SINGLE AP, 04/17/2018. . FINDINGS: Persistent consolidation of the lower lobes, and bilateral effusions again noted. Sternotomy wires, m ediastinal clips, suture material and left upper thoracic skin jacobo are noted. Pacer device unchan ged. CONCLUSION: Stable appearance of the chest. Electronically signed by: Syed Rosario MD 04/18/2018 9:34 AM EDT
[2018-04-18] MEDS: Insulin Detemir Inj 1,000 UNIT/10 ML Vial SQ SCH (09:39)
--- NOTE | 2018-04-18 12:18 | MB ---
cc: Aneesh Lowery MD DATE: 04/18/2018 REASON FOR CONSULTATION: Acute on chronic kidney disease management. HISTORY OF PRESENT ILLNESS: This is an 82-year-old male with history of CHF, type 2 diabetes and a TAVR procedure performed on 03/30/2018 at [facility]. This was complicated with a stroke and acute DE. The patient was in [facility] up until 04/16/2018 when he was transferred to the hospital here. The patient while in rehab was being followed and had a thoracentesis for recurrent pulmonary edema; however, given worsening dyspnea and shortness of breath, he was transferred over to the hospital. He was requiring 6 liters of oxygen initially and was transferred to the ICU. In the ICU, the patient was given diuretics and continued with IV Lasix 40 mg IV b.i.d. and has had good diuresis. His oxygen saturations have improved and he is on 2 liters nasal cannula oxygen at this point. Regarding his renal function, the patient apparently had a creatinine that ranged between 1.5 and 1.6 prior to the TAVR procedure. Subsequently, post-procedure where he suffered a CVA and an DE, his creatinine ranged between 1.8 and 1.9. While in rehab here, the patient was seen with Dr. Murphy and his creatinine had ranged between 1.9 to 2.1. It was thought that these may be some subsequent effects post his DE. He was continued on diuresis at that time. Here while inpatient in the ICU, nephrology was consulted again for further evaluation of his renal function. The creatinine here has remained stable between the level of 1.92 to the level of 2.0 today. The patient has been feeling much better post-diuresis and he had 1.8 liters of urine output over the last 24 hours. At this time, he is resting comfortably in bed. He has no acute complaints. Nephrology was consulted for further evaluation. REVIEW OF SYSTEMS: The patient denies any fevers, chills. No nausea, no vomiting, no diarrhea, no constipation. The patient has a Badillo catheter in place. No dysuria. The patient denies any chest pains at this time. He reports that shortness of breath is improving. Otherwise, review of systems negative. PAST MEDICAL HISTORY: Includes CAD, CHF, CVA, chronic kidney disease with baseline creatinine to 1.5 to 1.6 prior to TAVR procedure, diabetes, dyslipidemia, hypertension, and shingles. PAST SURGICAL HISTORY: Includes CABG, TAVR, transcatheter aortic valve replacement and also status post placement of cardiac pacemaker. FAMILY HISTORY: Includes CAD and diabetes. SOCIAL HISTORY: No alcohol, tobacco or drug use; however, is a former smoker. ALLERGIES: Include MEPERIDINE and CODEINE. PHYSICAL EXAMINATION: VITAL SIGNS: At time of evaluation, Temperature 98.2, pulse 79, respiratory rate 20, blood pressure 129/64. GENERAL: Awake, alert, oriented. NECK: Soft, supple. CARDIAC: Regular rate and rhythm. PULMONARY: Decreased breath sounds at bases. ABDOMEN: Soft, nontender, nondistended. EXTREMITIES: No edema. LABORATORY DATA: Sodium 144, potassium 4.4, chloride 105, bicarbonate 29.4, BUN 57, creatinine 2.0 with a glucose of 212. Last urinalysis 828 with negative protein, negative glucose, negative ketones, rare bacteria and hyaline casts with granular casts are seen. White count 5.5, hemoglobin 8.3, hematocrit 25.4 with a platelet count of 350. ASSESSMENT AND PLAN: 1. Acute kidney injury on chronic kidney disease. The patient had a baseline creatinine apparently between 1.5 and 1.6 prior to transcatheter aortic valve replacement procedure last month. Subsequently, the patient had a cardiac arrest and cerebrovascular accident. Since then while in rehab his creatinine ranged between 1.9 and 2.1 from 04/09/2018. Here, he presents with a creatinine at 2.01. At this point, the patient may be near his new baseline creatinine post cerebrovascular accident and cardiac arrest. Continue to avoid nephrotoxic medications as possible. The patient continues on diuresis, which is necessary for his congestive heart failure. He may have a cardiorenal component here where his renal function actually improves with diuresis. Agree with Lasix 40 IV b.i.d. at this time and continue with diuresis as renal function tolerates it. Of note, the patient remains on lisinopril 5 mg daily as he had a recent myocardial infarction so we will go ahead and continue with this for now. Should there be any significant worsening in his renal function, we will hold the KIERAN inhibitor; however, may continue at this point and continue to follow renal function. 2. Congestive heart failure. The patient has a 20% ejection fraction. He is status post transaortic valve replacement on 03/30/2018, complicated by myocardial infarction and cerebrovascular accident. Continue to follow up with cardiology. The patient had a recent thoracentesis with 1 liter removed. Apparently, his breathing is significantly improved with initiation of diuresis. Continue with Lasix as ordered. Continue followup with the cardiology team. 3. Diabetes. Continue him on glucose. 4. History of urinary retention. The patient is on Flomax. The patient has a penile implant. He currently has a Badillo catheter in place. Continue Badillo catheter for now. The patient is urinating well. Recent negative renal ultrasound while in rehab. 5. History of hyperkalemia. The patient had initial hyperkalemia while in [facility]. His potassium levels have improved. Likely improvement with diuresis. Continue to monitor at this point. 6. Questionable pneumonia. The patient is being treated with Unasyn. Continue to avoid nephrotoxic medications as possible. Continue to monitor symptoms. Aneesh Lowery MD DVP/ct , 11:32 AM , 11:44 AM MTDD
--- NOTE | 2018-04-18 16:43 | ECHRPT ---
Indication: Heart Failure CONCLUSIONS The left ventricular systolic function is severely reduced with an estimated ejection fraction in th e range of 20-25%. There is diffuse global hypokinesis with distinct regional wall motion abnormalities. Mild concentric left ventricular hypertrophy. Normal left ventricular size. Status-post percutaneous aortic valve replacement. Aortic valve area is 1.2 cm. Aortic valve mean gradient is 4 mmHg. There is trace tricuspid valve regurgitation. The estimated pulmonary arterial pressure is 46.7 mmHg. A left sided pleural effusion is present. BP: / HR: Rhythm: MEASUREMENTS (Male / Female) Normal Values Technical Quality:Fair 2D ECHO LV Diastolic Diameter PLAX 5.0 cm 4.2 - 5.9 / 3.9 - 5.3 cm LV Systolic Diameter PLAX 4.7 cm IVS Diastolic Thickness 1.2 cm 0.6 - 1.0 / 0.6 - 0.9 cm LVPW Diastolic Thickness 1.1 cm 0.6 - 1.0 / 0.6 - 0.9 cm LV Relative Wall Thickness 0.4 RV Internal Dim ED PLAX 3.5 cm LVOT Diameter 1.8 cm LA Systolic Diameter LX 4.3 cm 3.0 - 4.0 / 2.7 - 3.8 cm DOPPLER AV Peak Velocity 145.0 cm/s AV Peak Gradient 8.4 mmHg AV Mean Gradient 4.0 mmHg AV Velocity Time Integral 33.2 cm LVOT Peak Velocity 69.9 cm/s LVOT Peak Gradient 2.0 mmHg LVOT Velocity Time Integral 16.2 cm AV Area Cont Eq vti 1.2 cm AV Area Cont Eq pk 1.2 cm TR Peak Velocity 303.0 cm/s TR Peak Gradient 36.7 mmHg Right Atrial Pressure 10.0 mmHg Pulmonary Artery Systolic Pressu 46.7 mmHg Right Ventricular Systolic Press 46.7 mmHg FINDINGS LEFT VENTRICLE The left ventricular systolic function is severely reduced with an estimated ejection fraction in th e range of 20-25%. There is diffuse global hypokinesis with distinct regional wall motion abnormalities. Mild concentric left ventricular hypertrophy. Normal left ventricular size. AORTIC VALVE Status-post percutaneous aortic valve replacement. Aortic valve area is 1.2 cm. Aortic valve mean gradient is 4 mmHg. TRICUSPID VALVE There is trace tricuspid valve regurgitation. The estimated pulmonary arterial pressure is 46.7 mmHg. PERICARDIUM A left sided pleural effusion is present. Reji aKpadia MD, FACC, FSCAI (Electronically Signed) Final Date:18 April 2018 16:42
[2018-04-18] MEDS: Melatonin 5 MG Tablet PO SCH (21:32)
[2018-04-19 04:19] LABS: Hematocrit 25.3 % (39.0-51.0); Hemoglobin 8.4 gm/dL (13.0-17.0); Mean Corpuscular HGB Conc 33.3 % (32.0-36.0); Mean Corpuscular Hemoglobin 30.4 pg (27.0-34.0); Mean Corpuscular Volume 91.4 fL (80.0-100.0); Mean Platelet Volume 7.5 fL (7.0-11.0); Platelet Count 335 th/mm3 (150-450); Red Blood Count 2.77 mil/mm3 (4.50-5.90); Red Cell Distribution Width 14.1 % (11.6-17.2); White Blood Count 6.3 th/mm3 (4.0-11.0)
[2018-04-19 04:49] LABS: Potassium 4.1 meq/L (3.5-5.1)
--- NOTE | 2018-04-19 07:50 | P.PNCA ---
Subjective Interval history: Comfortable on RA lying flat in bed. Denies CP or SOB. Physical Exam Vital signs: Vital Signs 04/18/18 08:00 04/18/18 11:00 04/18/18 13:09 Temperature 98.0 F 98.2 F Pulse Rate 79 79 Respiratory Rate 20 20 Blood Pressure 135/62 129/64 Pulse Oximetry 97 04/18/18 15:00 04/18/18 19:00 04/18/18 20:39 Temperature 98.6 F 99.8 F H Pulse Rate 79 85 Respiratory Rate 18 20 Blood Pressure 137/69 136/69 Pulse Oximetry 98 04/18/18 23:00 04/19/18 03:00 Temperature 97.6 F 98.6 F Pulse Rate 70 70 Respiratory Rate 20 18 Blood Pressure 119/55 L 144/72 H Pulse Oximetry 99 97 Intake & Output 04/18/18 04/19/18 04/19/18 18:59 06:59 18:59 Intake Total 1275 / 1275 Output Total 1700 / 1700 Balance -425 / -425 Intake: IV 100 / 100 Unasyn Inj 1,500 MG In NS Inj 100 / 100 100 ML @ 200 mls/hr IV.SIG Q6H DIVYA Rx#:[id number] Oral 1175 / 1175 Output: Urine 1700 / 1700 Other: Date of Last Bowel Movement 04/18/18 04/19/18 # Incontinent Bowel Movements 4 - Constitutional no acute distress - Routine Respiratory Exam Present: CTA bilaterally - Routine Cardiovascular Exam Present: RRR, S1, S2, murmur - Routine Psychiatric Exam Present: normal affect - Urinary Catheter Management Indwelling Urethral Catheter Cath placed during this visit: yes Reason for continuing: Acute urinary retention Insertion date: 04/16/18 Insertion time: 21:00 Assessment and Plan - Assessment (1) CHF (congestive heart failure) Code(s): I50.9 - Heart failure, unspecified Status: Resolved (2) Diabetes Code(s): E11.9 - Type 2 diabetes mellitus without complications Status: Acute (3) History of CVA (cerebrovascular accident) Code(s): Z86.73 - Personal history of transient ischemic attack (TIA), and cerebral infarction without residual deficits Status: Chronic (4) S/P TAVR (transcatheter aortic valve replacement) Code(s): Z95.2 - Presence of prosthetic heart valve Status: Acute (5) CKD (chronic kidney disease) Code(s): N18.9 - Chronic kidney disease, unspecified Status: Chronic (6) History of permanent cardiac pacemaker placement Code(s): Z95.0 - Presence of cardiac pacemaker Status: Chronic (7) Hx of CABG Code(s): Z95.1 - Presence of aortocoronary bypass graft Status: Chronic - Plan Hemodynamics stable. OOB to chair. as tolerates with assistance. Nutrition and PT consult. Supportive care. Family requests DNI. 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
[2018-04-19] MEDS: Isosorbide Mononitrate 30 MG ER 24HR Tablet (Imdur) PO SCH (08:23)
[2018-04-19] MEDS: Heparin - SQ 10,000 UNITS/ML Vial SQ SCH ×2 (08:23→21:03)
[2018-04-19] MEDS: Famotidine 20 MG Tablet PO SCH ×2 (08:23→21:08)
[2018-04-19] MEDS: Nystatin Liq 500,000 UNIT/5 ML UDC SWISH-SWAL SCH ×4 (08:23→21:03)
[2018-04-19] MEDS: amLODIPine 5 MG Tablet PO SCH (08:24)
[2018-04-19] MEDS: Carvedilol 6.25 MG Tablet PO SCH ×2 (08:24→21:03)
[2018-04-19] MEDS: Furosemide 40 MG Tablet PO SCH (08:24)
[2018-04-19] MEDS: Lisinopril 5 MG Tablet PO SCH (08:24)
[2018-04-19] MEDS: Senna/Docusate Sodium 8.6/50 MG Tablet PO SCH ×2 (08:24→21:03)
[2018-04-19] MEDS ORDERED: Dextrose 50% in Water 50 ML Vial IV.PUSH PRN (08:31)
--- NOTE | 2018-04-19 08:33 | P.PNIM ---
Subjective Interval history: Follow-up for shortness of breath Shortness of breath a lot better, presently on room air, -1800 cc in 24 hours. No chest pain, no palpitations. Blood glucose in the 200s. Less confused today. Physical Exam Vital signs: Vital Signs 04/18/18 11:00 04/18/18 13:09 04/18/18 15:00 Temperature 98.2 F 98.6 F Pulse Rate 79 79 Respiratory Rate 20 18 Blood Pressure 129/64 137/69 Pulse Oximetry 97 04/18/18 19:00 04/18/18 20:39 04/18/18 23:00 Temperature 99.8 F H 97.6 F Pulse Rate 85 70 Respiratory Rate 20 20 Blood Pressure 136/69 119/55 L Pulse Oximetry 98 99 04/19/18 03:00 04/19/18 07:00 Temperature 98.6 F 98.1 F Pulse Rate 70 79 Respiratory Rate 18 18 Blood Pressure 144/72 H 153/73 H Pulse Oximetry 97 95 Intake & Output 04/18/18 04/19/18 04/19/18 18:59 06:59 18:59 Intake Total 1275 / 1275 Output Total 1700 / 1700 Balance -425 / -425 Intake: IV 100 / 100 Unasyn Inj 1,500 MG In NS Inj 100 / 100 100 ML @ 200 mls/hr IV.SIG Q6H DIVYA Rx#:[id number] Oral 1175 / 1175 Output: Urine 1700 / 1700 Other: Date of Last Bowel Movement 04/18/18 04/19/18 # Incontinent Bowel Movements 4 Narrative: Not in distress, alert, awake Pupils equal round reactive, anicteric Moist mucosa Regular rate and rhythm, positive murmur Clear breath sounds, decreased at bases, no crackles, no wheezing. Abdomen soft nontender, nondistended No edema lower extremities, +1 edema left forearm improving. Alert, awake, oriented to self and place. - Urinary Catheter Management Indwelling Urethral Catheter Cath placed during this visit: yes Reason for continuing: Acute urinary retention Insertion date: 04/16/18 Insertion time: 21:00 Results - Labs CBC & Chem 7: 04/19/18 03:47 04/19/18 03:47 Laboratory Results - last 24 hr 04/19/18 04/19/18 04/19/18 03:47 03:47 03:47 WBC 6.3 RBC 2.77 L Hgb 8.4 L Hct 25.3 L MCV 91.4 MCH 30.4 MCHC 33.3 RDW 14.1 Plt Count 335 MPV 7.5 Sodium 143 Potassium 4.1 Chloride 104 Carbon Dioxide 30.0 Anion Gap 9 BUN 50 H Creatinine 1.88 H Estimated GFR 34 L Random Glucose 171 H Calcium 8.0 L B-Natriuretic Peptide 2156 H - Imaging Impressions Chest X-Ray 04/18/18 00:00 CONCLUSION: Stable appearance of the chest. Assessment and Plan - Plan 82-year-old male with significant history of CAD, CABG in 1987, CHF, DM, status post TAVR at [facility] on 03/30 for symptomatic aortic stenosis with complications of intraoperative cardiac arrest, respiratory failure, pneumonia. Clinically improved and now admitted to [place] for comprehensive rehabilitation, transferred to the hospital for shortness of breath and altered mental status. Pneumonia versus systolic congestive heart failure exacerbation - Previously admitted for respiratory failure, Echo shows EF of 20% elevated BNPs, Repeat chest x-ray showed worsening consolidation on the left and bilateral pleural effusion, s/p thoracentesis for right pleural effusion, 1000 cc removed - no leukocytosis, no fever, Unasyn stopped. Chest x-ray stable. Good response to diuresis, -1800 cc overnight, continue Lasix, switched to 40 mg daily Coreg, senna, aspirin, Imdur, Plavix, oxygen support. Kidney function improving. Cardiology following s/p T AVR/cardiac arrest 2 03/30/2018, CAD Previously patient had PPD for symptomatic bradycardia, CABG 4 in 1987, medications as above. Previous chest pain, troponins flat, peaked at 0.2. 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 -Continue blood pressure control, continue aspirin and Plavix. Hypertension-continue Norvasc, Coreg, lisinopril and Lasix Altered mental status-likely toxic metabolic encephalopathy from hypoxemia, stopped tramadol and Ativan. Monitor. Improving. Acute on chronic renal disease -According to records baseline creatinine is 1.6, now elevated due to aggressive diuresis versus cardiorenal, nephrology following, agreed with Lasix and lisinopril. Creatinine is improving. Type 2 diabetes-blood glucose elevated, continue Levemir to 14 units daily, continue diabetic diet. Blood glucose still not controlled, start sliding scale insulin. Urinary retention - History of penile implant. Badillo recently discontinued, urine cultures negative, Straight cath as needed, Continue Flomax DVT Prophylaxis Heparin Code Status: Patient's requests DNI, but allows DNR, palliative care was following [facility]charge back to [facility] when ready. Physical therapy Nutrition consult Transferred to [facility]
[2018-04-19] MEDS: Sodium Bicarbonate 650 MG Tablet PO SCH ×3 (10:15→17:40)
[2018-04-19] MEDS: Insulin Detemir Inj 1,000 UNIT/10 ML Vial SQ SCH (10:15)
--- NOTE | 2018-04-19 11:33 | P.PNNP ---
Subjective Interval history: Feeling tired today, constipated Physical Exam Vital signs: Vital Signs 04/18/18 13:09 04/18/18 15:00 04/18/18 19:00 Temperature 98.6 F 99.8 F H Pulse Rate 79 85 Respiratory Rate 18 20 Blood Pressure 137/69 136/69 Pulse Oximetry 97 04/18/18 20:39 04/18/18 23:00 04/19/18 03:00 Temperature 97.6 F 98.6 F Pulse Rate 70 70 Respiratory Rate 20 18 Blood Pressure 119/55 L 144/72 H Pulse Oximetry 98 99 97 04/19/18 07:00 Temperature 98.1 F Pulse Rate 79 Respiratory Rate 18 Blood Pressure 153/73 H Pulse Oximetry 95 Intake & Output 04/18/18 04/19/18 04/19/18 18:59 06:59 18:59 Intake Total 1275 / 1275 Output Total 1700 / 1700 Balance -425 / -425 Intake: IV 100 / 100 Unasyn Inj 1,500 MG In NS Inj 100 / 100 100 ML @ 200 mls/hr IV.SIG Q6H DIVYA Rx#:[id number] Oral 1175 / 1175 Output: Urine 1700 / 1700 Other: Date of Last Bowel Movement 04/18/18 04/19/18 # Incontinent Bowel Movements 4 - Constitutional no acute distress - Routine HEENT Exam Head: Present: normocephalic Eye: Present: EOMI ENT: Present: mucous membranes moist - Routine Neck Exam Present: supple - Routine Respiratory Exam Present: diminished air movement - Routine Cardiovascular Exam Present: RRR - Routine Abdominal Exam Present: soft - Routine Skin Exam Present: intact - Routine Neurological Exam Present: alert - Detailed Neurological Exam: Coma Scale Eye Opening: Spontaneous - Routine Psychiatric Exam Present: normal affect - Urinary Catheter Management Indwelling Urethral Catheter Cath placed during this visit: yes Reason for continuing: Acute urinary retention Insertion date: 04/16/18 Insertion time: 21:00 Assessment and Plan - Assessment (1) LILIAN (acute kidney injury) Code(s): N17.9 - Acute kidney failure, unspecified Status: Acute Plan: ASSESSMENT AND PLAN: 1. Acute kidney injury on chronic kidney disease. The patient had a baseline creatinine apparently between 1.5 and 1.6 prior to transcatheter aortic valve replacement procedure last month. Subsequently, the patient had a cardiac arrest and cerebrovascular accident. Since then while in rehab his creatinine ranged between 1.9 and 2.1 from 04/09/2018. Creatinine 2.0 -> 1.8 after started on Lasix 40mg IV BID 1.7L UOP Apparent cardiorenal component of LILIAN Continue to diurese as tolerated. May be near baseline renal function. Patient remains on lisinopril 5 mg daily as he had a recent myocardial infarction so we will go ahead and continue with this for now. Should there be any significant worsening in his renal function, we will hold the KIERAN inhibitor; however, may continue at this point and continue to follow renal function. (2) S/P TAVR (transcatheter aortic valve replacement) Code(s): Z95.2 - Presence of prosthetic heart valve Status: Acute Plan: The patient has a 20% ejection fraction. He is status post transaortic valve replacement on 03/30/2018, complicated by myocardial infarction and cerebrovascular accident. Continue to follow up with cardiology (3) Hyperkalemia Code(s): E87.5 - Hyperkalemia Status: Acute Plan: History of hyperkalemia. The patient had initial hyperkalemia while in [facility]. His potassium levels have improved. Likely improvement with diuresis. Continue to monitor at this point. (4) Urinary retention Code(s): R33.9 - Retention of urine, unspecified Status: Acute Plan: The patient is on Flomax. The patient has a penile implant. He currently has a Badillo catheter in place. Continue Badillo catheter for now. The patient is urinating well. Recent negative renal ultrasound while in rehab.
[2018-04-19] MEDS: Insulin NovoLOG Aspart Correctional Sugar Inj SQ SCH ×3 (12:18→21:38)
--- NOTE | 2018-04-19 13:03 | P.DIET ---
Nutritional Evaluation Type of nutrition evaluation: initial Nutrition screening: Poor PO Intake, [facility] Screening comments: 04/17/18 [facility] Poor PO Intake Subjective Subjective Comments: Pt needs to be fed. Nursing reports pt is not "a big eater or drinker". Objective - Diagnosis Exacerbation CHF - Objective [place] body weight: 61.8 kg % IBW: 122 Body Weight Used for Calculations: Actual (75.4kg) Energy Needs - Lower Range (kCal/kg): 22 Energy Needs - Upper Range (kCal/kg): 27 Lower Limit kCal/kg (kCals): 1,659 Upper Limit kCal/kg (kCals): 2,036 Lower Limit Protein Factor (Grams per Kg): 1.0 Upper Limit Protein Factor (Grams per Kg): 1.3 Lower Protein Needs (Protein): 75 Upper Protein Needs (Protein): 98 Dietitian Reviewed in Medical Record: Current diet, Curent medications, Intake & Output, Labs, Medical history Diet Order: Cardiac Diet, Fluid Restriction 1500ml Oral Diet Intake Amount: Poor <50% Objective Comments: PMH Includes: CAD, CHF, CKD, DM, hyperlipidemia, HTN, Shingles, s/p TAVR/ cardiac arrest x 2 03/30/18, s/p CABG x 4 1987, s/p cardiac pacemaker placement Labs Include: BUN 50, Creatinine 1.88, estGFR 34, Glucose 171, POC Glucose 209 LBM 04/19, UOP 1700ml Assessment Assessment: Pt is at nutritional risk r/t advanced age and poor po intake less than 50% for meals. Pt needs to be fed. Send Glucerna Shakes TID(= 220 kcal and 10g Protein per serving). Monitor supplement acceptance-included in pt's fluid restriction. Labs reviewed-monitor renal labs and glucose closely. Reassess need for a CHO controlled diet as appropriate. Dietitian will follow. Recommendations: 1. Pt needs to be fed 2. Send Glucerna Shakes TID 3. Monitor supplement acceptance-included in pt's fluid restriction 4. Reassess need for a CHO controlled diet as appropriate 5. Dietitian will follow Dietitian to Monitor: Lab values, Renal labs, Glucose level, Supplement acceptance, Intake & Output, Diet tolerance, Weight change, PO Intake, Medical course
[2018-04-19] MEDS: Melatonin 5 MG Tablet PO SCH (21:09)
[2018-04-20] MEDS: Acetaminophen 325 MG Tablet PO PRN ×2 (00:42→23:56)
[2018-04-20 04:50] LABS: Calcium 7.9 mg/dL (8.5-10.1); Carbon Dioxide 30.2 meq/L (21.0-32.0); Potassium 3.6 meq/L (3.5-5.1)
[2018-04-20] MEDS: Isosorbide Mononitrate 30 MG ER 24HR Tablet (Imdur) PO SCH (06:20)
--- NOTE | 2018-04-20 09:23 | P.PNCA ---
Subjective Interval history: Awake ans alert. Lying in bed flat. No distress. at bedside. Physical Exam Vital signs: Vital Signs 04/19/18 11:00 04/19/18 15:00 04/19/18 17:00 Temperature 98.4 F 98.4 F Pulse Rate 79 80 79 Respiratory Rate 16 16 Blood Pressure 118/56 L 110/54 L Pulse Oximetry 95 96 04/19/18 18:00 04/19/18 19:00 04/19/18 19:30 Temperature 98.8 F Pulse Rate 79 79 79 Respiratory Rate 18 Blood Pressure 145/67 H Pulse Oximetry 96 04/19/18 20:00 04/19/18 21:00 04/19/18 22:00 Temperature Pulse Rate 76 74 73 Respiratory Rate Blood Pressure Pulse Oximetry 04/19/18 23:00 04/20/18 00:00 04/20/18 01:00 Temperature 98.8 F Pulse Rate 82 63 63 Respiratory Rate 16 Blood Pressure 158/71 H Pulse Oximetry 96 04/20/18 02:00 04/20/18 03:00 04/20/18 04:00 Temperature Pulse Rate 63 63 63 Respiratory Rate Blood Pressure Pulse Oximetry 04/20/18 04:10 04/20/18 05:00 04/20/18 06:00 Temperature 98.8 F Pulse Rate 78 79 79 Respiratory Rate 16 Blood Pressure 142/86 H Pulse Oximetry 98 Intake & Output 04/19/18 04/20/18 04/20/18 18:59 06:59 18:59 Intake Total 960 / 960 240 / 240 Output Total 700 / 700 600 / 600 Balance 260 / 260 -360 / -360 Weight 74.5 kg Intake: Oral 960 / 960 240 / 240 Output: Urine 600 / 600 Urine Amount (Catheter) 700 / 700 Indwelling Urethral Catheter 700 / 700 Other: Date of Last Bowel Movement 04/19/18 04/20/18 # Bowel Movements 1 3 - Constitutional no acute distress - Routine Respiratory Exam Present: CTA bilaterally - Routine Cardiovascular Exam Present: RRR, S1, S2, murmur - Routine Extremities Exam Comments: No C/C/E - Urinary Catheter Management Indwelling Urethral Catheter Cath placed during this visit: yes Reason for continuing: Acute urinary retention Insertion date: 04/16/18 Insertion time: 21:00 Assessment and Plan - Assessment (1) CHF (congestive heart failure) Code(s): I50.9 - Heart failure, unspecified Status: Resolved (2) Diabetes Code(s): E11.9 - Type 2 diabetes mellitus without complications Status: Chronic (3) History of CVA (cerebrovascular accident) Code(s): Z86.73 - Personal history of transient ischemic attack (TIA), and cerebral infarction without residual deficits Status: Chronic (4) S/P TAVR (transcatheter aortic valve replacement) Code(s): Z95.2 - Presence of prosthetic heart valve Status: Chronic (5) CKD (chronic kidney disease) Code(s): N18.9 - Chronic kidney disease, unspecified Status: Chronic (6) History of permanent cardiac pacemaker placement Code(s): Z95.0 - Presence of cardiac pacemaker Status: Chronic (7) Hx of CABG Code(s): Z95.1 - Presence of aortocoronary bypass graft Status: Chronic - Plan Hemodynamics stable. OOB to chair. as tolerates with assistance. Nutrition and PT consult. Supportive care. Family requests DNI. Discussed with patients . Dr. 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
--- NOTE | 2018-04-20 09:41 | P.PNIM ---
Subjective Interval history: Follow-up for shortness of breath Shortness of breath a lot better, in room air, mental status also better, almost back to baseline. Denies any chest pain, had a good night. Physical Exam Vital signs: Vital Signs 04/19/18 11:00 04/19/18 15:00 04/19/18 17:00 Temperature 98.4 F 98.4 F Pulse Rate 79 80 79 Respiratory Rate 16 16 Blood Pressure 118/56 L 110/54 L Pulse Oximetry 95 96 04/19/18 18:00 04/19/18 19:00 04/19/18 19:30 Temperature 98.8 F Pulse Rate 79 79 79 Respiratory Rate 18 Blood Pressure 145/67 H Pulse Oximetry 96 04/19/18 20:00 04/19/18 21:00 04/19/18 22:00 Temperature Pulse Rate 76 74 73 Respiratory Rate Blood Pressure Pulse Oximetry 04/19/18 23:00 04/20/18 00:00 04/20/18 01:00 Temperature 98.8 F Pulse Rate 82 63 63 Respiratory Rate 16 Blood Pressure 158/71 H Pulse Oximetry 96 04/20/18 02:00 04/20/18 03:00 04/20/18 04:00 Temperature Pulse Rate 63 63 63 Respiratory Rate Blood Pressure Pulse Oximetry 04/20/18 04:10 04/20/18 05:00 04/20/18 06:00 Temperature 98.8 F Pulse Rate 78 79 79 Respiratory Rate 16 Blood Pressure 142/86 H Pulse Oximetry 98 Intake & Output 04/19/18 04/20/18 04/20/18 18:59 06:59 18:59 Intake Total 960 / 960 240 / 240 Output Total 700 / 700 600 / 600 Balance 260 / 260 -360 / -360 Weight 74.5 kg Intake: Oral 960 / 960 240 / 240 Output: Urine 600 / 600 Urine Amount (Catheter) 700 / 700 Indwelling Urethral Catheter 700 / 700 Other: Date of Last Bowel Movement 04/19/18 04/20/18 # Bowel Movements 1 3 Narrative: Not in distress, alert, awake Pupils equal round reactive, anicteric Moist mucosa Regular rate and rhythm, positive murmur Clear breath sounds, decreased at bases, no crackles, no wheezing. Abdomen soft nontender, nondistended No edema lower extremities, +1 edema left forearm almost resolved. Alert, awake, oriented to self, year and place. Moves extremities. Positive for generalized weakness - Urinary Catheter Management Indwelling Urethral Catheter Cath placed during this visit: yes Reason for continuing: Acute urinary retention Insertion date: 04/16/18 Insertion time: 21:00 Results - Labs CBC & Chem 7: 04/19/18 03:47 04/20/18 03:55 Laboratory Results - last 24 hr 04/19/18 04/19/18 04/19/18 11:41 14:41 21:23 Sodium Potassium Chloride Carbon Dioxide Anion Gap BUN Creatinine Estimated GFR POC Glucose 209 H 219 H 184 H Random Glucose Calcium B-Natriuretic Peptide 04/20/18 04/20/18 04/20/18 03:55 03:55 07:44 Sodium 142 Potassium 3.6 Chloride 103 Carbon Dioxide 30.2 Anion Gap 9 BUN 49 H Creatinine 1.70 H Estimated GFR 39 L POC Glucose 134 H Random Glucose 131 H Calcium 7.9 L B-Natriuretic Peptide 2597 H Assessment and Plan - Plan 82-year-old male with significant history of CAD, CABG in 1987, CHF, DM, status post TAVR at [facility] on 03/30 for symptomatic aortic stenosis with complications of intraoperative cardiac arrest, respiratory failure, pneumonia. Clinically improved and now admitted to [place] for comprehensive rehabilitation, transferred to the hospital for shortness of breath and altered mental status. Pneumonia versus systolic congestive heart failure exacerbation - Previously admitted for respiratory failure, Echo shows EF of 20% elevated BNPs, Repeat chest x-ray showed worsening consolidation on the left and bilateral pleural effusion, s/p thoracentesis for right pleural effusion, 1000 cc removed. No leukocytosis, no fever, Unasyn stopped. Chest x-ray stable. Good response to diuresis, continue Lasix 40 mg daily Coreg, senna, aspirin, Imdur, Plavix, oxygen support. Kidney function improving. Cardiology following s/p T AVR/cardiac arrest 2 03/30/2018, CAD Previously patient had PPD for symptomatic bradycardia, CABG 4 in 1987, medications as above. Previous chest pain, troponins flat, peaked at 0.2. 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 -Continue blood pressure control, continue aspirin and Plavix. Hypertension-continue Norvasc, Coreg, lisinopril and Lasix Altered mental status-likely toxic metabolic encephalopathy from hypoxemia, stopped tramadol and Ativan. Almost resolved. Acute on chronic renal disease -According to records baseline creatinine is 1.6, creatinine almost at baseline at 1.8, likely cardiorenal, nephrology following, agreed with Lasix and lisinopril. Creatinine is improving. Type 2 diabetes-blood glucose elevated, continue Levemir to 14 units daily, continue diabetic diet. Continue sliding scale insulin. Urinary retention - History of penile implant. Badillo recently discontinued, urine cultures negative, Straight cath as needed, Continue Flomax DVT Prophylaxis Heparin Code Status: Patient's requests DNI, but allows DNR, palliative care was following Discharge back to [facility] when cleared by cardiology, possibly tomorrow. Physical therapy Nutrition consult
[2018-04-20] MEDS: Furosemide 40 MG Tablet PO SCH (09:51)
[2018-04-20] MEDS: Famotidine 20 MG Tablet PO SCH ×2 (09:51→21:11)
[2018-04-20] MEDS: Lisinopril 5 MG Tablet PO SCH (09:52)
[2018-04-20] MEDS: Heparin - SQ 10,000 UNITS/ML Vial SQ SCH ×2 (09:52→21:14)
[2018-04-20] MEDS: amLODIPine 5 MG Tablet PO SCH (09:52)
[2018-04-20] MEDS: Nystatin Liq 500,000 UNIT/5 ML UDC SWISH-SWAL SCH ×4 (09:52→21:10)
[2018-04-20] MEDS: Senna/Docusate Sodium 8.6/50 MG Tablet PO SCH ×2 (09:52→21:10)
[2018-04-20] MEDS: Carvedilol 6.25 MG Tablet PO SCH ×2 (09:52→21:14)
[2018-04-20] MEDS: Sodium Bicarbonate 650 MG Tablet PO SCH ×3 (09:53→19:46)
[2018-04-20] MEDS: Insulin NovoLOG Aspart Correctional Sugar Inj SQ SCH ×3 (12:04→21:12)
[2018-04-20] MEDS: Insulin Detemir Inj 1,000 UNIT/10 ML Vial SQ SCH (19:46)
[2018-04-20] MEDS: Melatonin 5 MG Tablet PO SCH (21:11)
[2018-04-21 05:47] LABS: Calcium 7.9 mg/dL (8.5-10.1); Carbon Dioxide 27.8 meq/L (21.0-32.0); Potassium 3.4 meq/L (3.5-5.1)
[2018-04-21] MEDS: Isosorbide Mononitrate 30 MG ER 24HR Tablet (Imdur) PO SCH (06:13)
[2018-04-21] MEDS: Heparin - SQ 10,000 UNITS/ML Vial SQ SCH ×2 (08:44→21:31)
[2018-04-21] MEDS: Insulin Detemir Inj 1,000 UNIT/10 ML Vial SQ SCH (08:44)
[2018-04-21] MEDS: Lisinopril 5 MG Tablet PO SCH (08:45)
[2018-04-21] MEDS: Famotidine 20 MG Tablet PO SCH ×2 (08:45→21:32)
[2018-04-21] MEDS: Nystatin Liq 500,000 UNIT/5 ML UDC SWISH-SWAL SCH ×4 (08:45→21:31)
[2018-04-21] MEDS: amLODIPine 5 MG Tablet PO SCH (08:45)
[2018-04-21] MEDS: Furosemide 40 MG Tablet PO SCH (08:46)
[2018-04-21] MEDS: Sodium Bicarbonate 650 MG Tablet PO SCH ×3 (08:46→17:31)
[2018-04-21] MEDS: Senna/Docusate Sodium 8.6/50 MG Tablet PO SCH ×2 (08:46→21:32)
[2018-04-21] MEDS: Carvedilol 6.25 MG Tablet PO SCH ×2 (08:46→21:32)
[2018-04-21] MEDS: Insulin NovoLOG Aspart Correctional Sugar Inj SQ SCH ×4 (08:48→21:33)
--- NOTE | 2018-04-21 09:38 | P.PNIM ---
Subjective Interval history: Follow-up for chest pain No chest pain overnight, no palpitations, on room air. Still a bit confused. No nausea or vomiting. Physical Exam Vital signs: Vital Signs 04/20/18 10:00 04/20/18 11:00 04/20/18 12:00 Temperature 98 F Pulse Rate 80 80 80 Respiratory Rate 16 Blood Pressure 152/67 H Pulse Oximetry 96 04/20/18 13:00 04/20/18 14:00 04/20/18 15:00 Temperature 98 F Pulse Rate 82 81 80 Respiratory Rate 16 Blood Pressure 121/48 L Pulse Oximetry 97 04/20/18 16:00 04/20/18 17:00 04/20/18 18:00 Temperature Pulse Rate 79 79 80 Respiratory Rate Blood Pressure Pulse Oximetry 04/20/18 19:00 04/20/18 20:00 04/20/18 21:00 Temperature 97.4 F L Pulse Rate 80 80 80 Respiratory Rate 18 Blood Pressure 135/63 Pulse Oximetry 93 L 04/20/18 22:00 04/20/18 23:00 04/21/18 00:00 Temperature 97.9 F Pulse Rate 79 79 79 Respiratory Rate 16 Blood Pressure Pulse Oximetry 97 04/21/18 01:00 04/21/18 02:00 04/21/18 03:00 Temperature 97.7 F Pulse Rate 79 79 80 Respiratory Rate 18 Blood Pressure 122/65 Pulse Oximetry 97 04/21/18 04:00 04/21/18 05:00 04/21/18 06:00 Temperature Pulse Rate 79 74 79 Respiratory Rate Blood Pressure Pulse Oximetry Intake & Output 04/20/18 04/21/18 04/21/18 18:59 06:59 18:59 Intake Total 240 / 240 240 / 240 Output Total 650 / 650 600 / 600 Balance -410 / -410 -360 / -360 Weight 74.5 kg Intake: Oral 240 / 240 240 / 240 Output: Urine 650 / 650 Urine Amount (Catheter) 600 / 600 Indwelling Urethral Catheter 600 / 600 Other: Date of Last Bowel Movement 04/20/18 04/20/18 # Bowel Movements 3 # Incontinent Bowel Movements 4 Narrative: Not in distress, alert, awake Pupils equal round reactive, anicteric Moist mucosa Regular rate and rhythm, positive murmur Clear breath sounds, decreased on the left base, no crackles or wheezing. Abdomen soft nontender, nondistended No edema lower extremities, +1 edema left forearm almost resolved. Alert, awake, oriented to self, year but not to place, he thinks he is in [place]. He just moved to [place]. Moves extremities. Positive for generalized weakness - Urinary Catheter Management Indwelling Urethral Catheter Cath placed during this visit: yes Reason for continuing: Acute urinary retention Insertion date: 04/16/18 Insertion time: 21:00 Results - Labs CBC & Chem 7: 04/19/18 03:47 04/21/18 04:55 Laboratory Results - last 24 hr 04/20/18 04/20/18 04/20/18 12:01 16:58 20:51 Sodium Potassium Chloride Carbon Dioxide Anion Gap BUN Creatinine Estimated GFR POC Glucose 271 H 250 H 199 H Random Glucose Calcium B-Natriuretic Peptide 04/21/18 04/21/18 04/21/18 04:55 04:55 07:49 Sodium 141 Potassium 3.4 L Chloride 104 Carbon Dioxide 27.8 Anion Gap 9 BUN 41 H Creatinine 1.53 H Estimated GFR 44 L POC Glucose 105 Random Glucose 74 Calcium 7.9 L B-Natriuretic Peptide 1750 H Assessment and Plan - Plan 82-year-old male with significant history of CAD, CABG in 1987, CHF, DM, status post TAVR at [facility] on 03/30 for symptomatic aortic stenosis with complications of intraoperative cardiac arrest, respiratory failure, pneumonia. Admitted to [place] for comprehensive rehabilitation, transferred to the hospital for shortness of breath and altered mental status. Pneumonia versus systolic congestive heart failure exacerbation - Previously admitted for respiratory failure, Echo shows EF of 20% elevated BNPs, Repeat chest x-ray showed worsening consolidation on the left and bilateral pleural effusion, s/p thoracentesis for right pleural effusion, 1000 cc removed. No leukocytosis, no fever, Unasyn stopped. Chest x-ray stable. Good response to diuresis, continue Lasix 40 mg daily Coreg, senna, aspirin, Imdur, Plavix, oxygen support. Kidney function improving. Cardiology following s/p T AVR/cardiac arrest 2 03/30/2018, CAD Previously patient had PPD for symptomatic bradycardia, CABG 4 in 1987, medications as above. Previous chest pain, troponins flat, peaked at 0.2. 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 Continue rehab efforts when discharged back to [place], improving. -Continue blood pressure control, continue aspirin and Plavix. Hypertension-continue Norvasc, Coreg, lisinopril and Lasix Altered mental status-likely toxic metabolic encephalopathy from hypoxemia, stopped tramadol and Ativan. Almost resolved. Acute on chronic renal disease -According to records baseline creatinine is 1.6, creatinine almost at baseline at 1.7, likely cardiorenal, nephrology following, agreed with Lasix and lisinopril. Creatinine is improving. Recheck BMP tomorrow. Type 2 diabetes-blood glucose elevated, continue Levemir to 14 units daily, continue diabetic diet. Continue sliding scale insulin. Urinary retention - History of penile implant. Badillo recently discontinued, urine cultures negative, Straight cath as needed, Continue Flomax Left upper extremity swelling-improving, likely secondary to extravasation, ultrasound of the left upper extremity pending. DVT Prophylaxis Heparin Code Status: Patient's requests DNI, but allows DNR, palliative care was following Discharge back to [facility] rehab when cleared by cardiology, possibly today if ok with cardiology. Physical therapy Nutrition consult
[2018-04-21] MEDS ORDERED: Potassium Chloride 25 MEQ Effervescent Tablet PO ONE (10:30)
--- NOTE | 2018-04-21 10:53 | P.PNNP ---
Subjective Interval history: Sitting up in chair. Denies any shortness of breath. Creatinine continues to improve at 1.53 today. <Mary Beth Live - Last Filed: 04/21/18 10:47> Physical Exam Vital signs: Vital Signs 04/20/18 11:00 04/20/18 12:00 04/20/18 13:00 Temperature 98 F Pulse Rate 80 80 82 Respiratory Rate 16 Blood Pressure 152/67 H Pulse Oximetry 96 04/20/18 14:00 04/20/18 15:00 04/20/18 16:00 Temperature 98 F Pulse Rate 81 80 79 Respiratory Rate 16 Blood Pressure 121/48 L Pulse Oximetry 97 04/20/18 17:00 04/20/18 18:00 04/20/18 19:00 Temperature 97.4 F L Pulse Rate 79 80 80 Respiratory Rate 18 Blood Pressure 135/63 Pulse Oximetry 93 L 04/20/18 20:00 04/20/18 21:00 04/20/18 22:00 Temperature Pulse Rate 80 80 79 Respiratory Rate Blood Pressure Pulse Oximetry 04/20/18 23:00 04/21/18 00:00 04/21/18 01:00 Temperature 97.9 F Pulse Rate 79 79 79 Respiratory Rate 16 Blood Pressure Pulse Oximetry 97 04/21/18 02:00 04/21/18 03:00 04/21/18 04:00 Temperature 97.7 F Pulse Rate 79 80 79 Respiratory Rate 18 Blood Pressure 122/65 Pulse Oximetry 97 04/21/18 05:00 04/21/18 06:00 04/21/18 07:00 Temperature 97.9 F Pulse Rate 74 79 79 Respiratory Rate 16 Blood Pressure 127/60 Pulse Oximetry 100 04/21/18 08:00 04/21/18 09:00 04/21/18 10:00 Temperature Pulse Rate 79 79 79 Respiratory Rate Blood Pressure Pulse Oximetry Intake & Output 04/20/18 04/21/18 04/21/18 18:59 06:59 18:59 Intake Total 240 / 240 240 / 240 Output Total 650 / 650 600 / 600 Balance -410 / -410 -360 / -360 Weight 74.5 kg Intake: Oral 240 / 240 240 / 240 Output: Urine 650 / 650 Urine Amount (Catheter) 600 / 600 Indwelling Urethral Catheter 600 / 600 Other: Date of Last Bowel Movement 09/11/0204/20/18 04/21/18 # Bowel Movements 3 # Incontinent Bowel Movements 4 Narrative: GENERAL: This is a well-nourished, well-developed elderly male patient , in no apparent distress. Awake and alert. is at the bedside. SKIN: Warm and dry. No generalized rash. HEENT: Normocephalic. Right pupil nonreactive, blind. NECK: Trachea midline. CARDIOVASCULAR: Regular rate without faint murmurs. No gallops, or rubs. PPM site Right SC. Right Incision site CDI. RESPIRATORY: Fair air entry. Diminished bases bilaterally. Poor respiratory effort. GASTROINTESTINAL: Abdomen soft, non-tender, nondistended. Bowel Sounds normoactive x4. MUSCULOSKELETAL: Extremities without clubbing, cyanosis. NEUROLOGICAL: Awake and alert. Normal speech. - Urinary Catheter Management Indwelling Urethral Catheter Cath placed during this visit: yes Reason for continuing: Acute urinary retention Insertion date: 04/16/18 Insertion time: 21:00 <Mary Beth Live - Last Filed: 04/21/18 10:47> Vital signs: Vital Signs 04/20/18 14:00 04/20/18 15:00 04/20/18 16:00 Temperature 98 F Pulse Rate 81 80 79 Respiratory Rate 16 Blood Pressure 121/48 L Pulse Oximetry 97 04/20/18 17:00 04/20/18 18:00 04/20/18 19:00 Temperature 97.4 F L Pulse Rate 79 80 80 Respiratory Rate 18 Blood Pressure 135/63 Pulse Oximetry 93 L 04/20/18 20:00 04/20/18 21:00 04/20/18 22:00 Temperature Pulse Rate 80 80 79 Respiratory Rate Blood Pressure Pulse Oximetry 04/20/18 23:00 04/21/18 00:00 04/21/18 01:00 Temperature 97.9 F Pulse Rate 79 79 79 Respiratory Rate 16 Blood Pressure Pulse Oximetry 97 04/21/18 02:00 04/21/18 03:00 04/21/18 04:00 Temperature 97.7 F Pulse Rate 79 80 79 Respiratory Rate 18 Blood Pressure 122/65 Pulse Oximetry 97 04/21/18 05:00 04/21/18 06:00 04/21/18 07:00 Temperature 97.9 F Pulse Rate 74 79 79 Respiratory Rate 16 Blood Pressure 127/60 Pulse Oximetry 100 04/21/18 08:00 04/21/18 09:00 04/21/18 10:00 Temperature Pulse Rate 79 79 79 Respiratory Rate Blood Pressure Pulse Oximetry 04/21/18 11:00 04/21/18 12:00 04/21/18 13:00 Temperature 98 F Pulse Rate 80 80 79 Respiratory Rate 17 Blood Pressure 97/56 L Pulse Oximetry 98 Intake & Output 04/20/18 04/21/18 04/21/18 18:59 06:59 18:59 Intake Total 240 / 240 240 / 240 Output Total 650 / 650 600 / 600 Balance -410 / -410 -360 / -360 Weight 74.5 kg Intake: Oral 240 / 240 240 / 240 Output: Urine 650 / 650 Urine Amount (Catheter) 600 / 600 Indwelling Urethral Catheter 600 / 600 Other: Date of Last Bowel Movement 04/20/18 04/20/18 04/21/18 # Bowel Movements 3 # Incontinent Bowel Movements 4 - Urinary Catheter Management Indwelling Urethral Catheter Cath placed during this visit: no <Drew Murphy S - Last Filed: 04/21/18 13:57> Assessment and Plan - Assessment (1) LILIAN (acute kidney injury) Code(s): N17.9 - Acute kidney failure, unspecified Status: Acute Plan: Acute kidney injury on chronic kidney disease. The patient had a baseline creatinine apparently between 1.5 and 1.6 prior to transcatheter aortic valve replacement procedure last month. Subsequently, the patient had a cardiac arrest and cerebrovascular accident. Since then while in rehab his creatinine ranged between 1.9 and 2.1 from 04/09/2018. Creatinine 2.0 -> 1.8 ->1.5 Non oliguric Apparent cardiorenal component of LILIAN Continue to diurese as tolerated. May be near baseline renal function. Patient remains on lisinopril 5 mg daily as he had a recent myocardial infarction so we will go ahead and continue with this for now. Should there be any significant worsening in his renal function, we will hold the KIERAN inhibitor; however, may continue at this point and continue to follow renal function. (2) S/P TAVR (transcatheter aortic valve replacement) Code(s): Z95.2 - Presence of prosthetic heart valve Status: Chronic Plan: The patient has a 20% ejection fraction. He is status post transaortic valve replacement on 03/30/2018, complicated by myocardial infarction and cerebrovascular accident. Continue to follow up with cardiology (3) Hyperkalemia Code(s): E87.5 - Hyperkalemia Status: Acute Plan: History of hyperkalemia. The patient had initial hyperkalemia while in [place] rehabilitation. His potassium levels have improved. Likely improvement with diuresis. Continue to monitor at this point. (4) Urinary retention Code(s): R33.9 - Retention of urine, unspecified Status: Acute Plan: Continue Flomax. The patient has a penile implant. He currently has a Badillo catheter in place. Continue Badillo catheter for now. The patient is urinating well. <Mary Beth Live - Last Filed: 04/21/18 10:47> - Assessment (1) LILIAN (acute kidney injury) Code(s): N17.9 - Acute kidney failure, unspecified Status: Acute (2) S/P TAVR (transcatheter aortic valve replacement) Code(s): Z95.2 - Presence of prosthetic heart valve Status: Chronic (3) Hyperkalemia Code(s): E87.5 - Hyperkalemia Status: Acute (4) Urinary retention Code(s): R33.9 - Retention of urine, unspecified Status: Acute - Attending Attestation Patient seen and examined; records reviewed; agree with the plan and recommendations of the CHILDCARE PROVIDER <Drew Murphy - Last Filed: 04/21/18 13:57>
--- NOTE | 2018-04-21 12:33 | P.PNCA ---
Subjective Interval history: Awake, alert. Sitting up in chair. Denies pain or needs. Physical Exam Vital signs: Vital Signs 04/20/18 13:00 04/20/18 14:00 04/20/18 15:00 Temperature 98 F Pulse Rate 82 81 80 Respiratory Rate 16 Blood Pressure 121/48 L Pulse Oximetry 97 04/20/18 16:00 04/20/18 17:00 04/20/18 18:00 Temperature Pulse Rate 79 79 80 Respiratory Rate Blood Pressure Pulse Oximetry 04/20/18 19:00 04/20/18 20:00 04/20/18 21:00 Temperature 97.4 F L Pulse Rate 80 80 80 Respiratory Rate 18 Blood Pressure 135/63 Pulse Oximetry 93 L 04/20/18 22:00 04/20/18 23:00 04/21/18 00:00 Temperature 97.9 F Pulse Rate 79 79 79 Respiratory Rate 16 Blood Pressure Pulse Oximetry 97 04/21/18 01:00 04/21/18 02:00 04/21/18 03:00 Temperature 97.7 F Pulse Rate 79 79 80 Respiratory Rate 18 Blood Pressure 122/65 Pulse Oximetry 97 04/21/18 04:00 04/21/18 05:00 04/21/18 06:00 Temperature Pulse Rate 79 74 79 Respiratory Rate Blood Pressure Pulse Oximetry 04/21/18 07:00 04/21/18 08:00 04/21/18 09:00 Temperature 97.9 F Pulse Rate 79 79 79 Respiratory Rate 16 Blood Pressure 127/60 Pulse Oximetry 100 04/21/18 10:00 04/21/18 11:00 04/21/18 12:00 Temperature 98 F Pulse Rate 79 80 80 Respiratory Rate 17 Blood Pressure 97/56 L Pulse Oximetry 98 Intake & Output 04/20/18 04/21/18 04/21/18 18:59 06:59 18:59 Intake Total 240 / 240 240 / 240 Output Total 650 / 650 600 / 600 Balance -410 / -410 -360 / -360 Weight 74.5 kg Intake: Oral 240 / 240 240 / 240 Output: Urine 650 / 650 Urine Amount (Catheter) 600 / 600 Indwelling Urethral Catheter 600 / 600 Other: Date of Last Bowel Movement 04/20/18 04/20/18 04/21/18 # Bowel Movements 3 # Incontinent Bowel Movements 4 Narrative: GENERAL: Awake and alert, no distress. Family at the bedside. SKIN: Warm and dry. HEENT: Normocephalic. Right pupil nonreactive, blind. NECK: Trachea midline. CARDIOVASCULAR: Regular rate, rhythm. No gallops, or rubs. Flow murmur over the aortic valve. PPM site Right SC. Left SC Incision site CDI. No edema. RESPIRATORY: Respirations even and unlabored. Breath sounds diminished bases bilaterally. Room air. GASTROINTESTINAL: Abdomen soft, non-tender, nondistended. Bowel Sounds normoactive x4. MUSCULOSKELETAL: Extremities without clubbing, cyanosis. BUE weakness. NEUROLOGICAL: Awake and alert. Normal speech. - Urinary Catheter Management Indwelling Urethral Catheter Cath placed during this visit: yes Reason for continuing: Acute urinary retention Insertion date: 04/16/18 Insertion time: 21:00 Assessment and Plan - Assessment (1) CHF (congestive heart failure) Code(s): I50.9 - Heart failure, unspecified Status: Resolved (2) CAD (coronary artery disease) Code(s): I25.10 - Atherosclerotic heart disease of [place] coronary artery without angina pectoris Status: Acute (3) Respiratory insufficiency Code(s): R06.89 - Other abnormalities of breathing Status: Acute (4) Acute cerebrovascular accident (CVA) of cerebellum Code(s): I63.9 - Cerebral infarction, unspecified Status: Acute (5) Gvojc-bo-edragdt kidney injury Code(s): N17.9 - Acute kidney failure, unspecified; N18.9 - Chronic kidney disease, unspecified Status: Acute - Plan Hemodynamics stable. Awake, alert. SOB improved. Probnp trending down. Renal function improved. K+ 3.4 - replaced per protocol. Continue lasix. EF 20-25%. Continue beta sanjiv, KIERAN-I, diuretic. OOB to chair. as tolerated with assistance. Nutrition and PT consult. Consult case management for inpatient rehab. Family would like patient to go to [facility] if bed available. They do not want to return to [place]. Follow up in the office. Discussed Condition With: Dr. Akbar Discharge Planning: Consult Case management - [facility] (1) CHF (congestive heart failure) Qualifiers: Heart failure type: systolic (2) CAD (coronary artery disease) Qualifiers: Coronary Disease-Associated Artery/Lesion type: [place] artery [place] vs. transplanted heart: [place] heart Associated angina: without angina Qualified Code(s): I25.10 - Atherosclerotic heart disease of [place] coronary artery without angina pectoris
--- NOTE | 2018-04-21 13:40 | US ---
EXAM DATE: 04/21/2018 1:36 PM EDT AGE/SEX: 82 years / Male INDICATIONS: Left arm swelling. CLINICAL DATA: This is the patient's initial encounter. Patient reports that signs and symptoms have been present for 1 day and indicates a pain score of 2/10. MEDICAL/SURGICAL HISTORY: Congestive heart failure. Diabetes. Hypertension. Coronary artery disease. Chronic kidney disease. Cerebral vascular accident. Hyperlipidemia. Pacemaker. CABG. Transc atheter aortic valve replacement. Pacemaker placement. COMPARISON: No prior exams available for comparison. FINDINGS: The vessels are compressible and augmentation response is documented. No filling defects a re seen. The flow is phasic with respiration. Other: None. CONCLUSION: 1. No evidence of DVT. Electronically signed by: Arnold Beth MD 04/21/2018 1:39 PM EDT
--- NOTE | 2018-04-21 14:45 | P.DS ---
Date of admission: 04/16/18 15:00 Primary care physician: UNKNOWN Anticipated date of discharge: 04/22/18 Brief History from admission: 82-year-old male with a history of CHF, type 2 diabetes, TAVR procedure on 2017 was transferred from [facility] back to the hospital due to increased shortness of breath, chest pain, altered mental status. His TAVR procedure on came with complications, reports that he had to be resuscitated on the table more than once and that afterwards he had evidence that he suffered a stroke. He has had recurrent pulmonary edema, particularly in the right lung, paracentesis was performed yesterday. His reports that he received some tramadol overnight the night before last and that he has not been himself since then. Patient himself is a poor historian. There is no complaint of nausea vomiting or diarrhea. No new rash, no head trauma. DS: Diagnosis - Discharge Diagnosis (1) S/P TAVR (transcatheter aortic valve replacement) Status: Chronic (2) LILIAN (acute kidney injury) Status: Acute (3) Systolic dysfunction with acute on chronic heart failure Status: Acute (4) CAD (coronary artery disease) Status: Acute DS: Summary Hospital Course: This is a 82-year-old male with significant history of CAD, CABG in 1987, CHF, DM, status post TAVR at [facility] on 03/30 for symptomatic aortic stenosis with complications of intraoperative cardiac arrest, respiratory failure, pneumonia. Admitted to [facility] for comprehensive rehabilitation, transferred to the hospital for shortness of breath and altered mental status. Upon transfer, the patient was treated as a case of pneumonia versus congestive heart failure exacerbation. Patient was started on broad-spectrum antibiotics. Echocardiogram showed an ejection fraction of 20%, chest x-ray showed worsening consolidation of the left and bilateral pleural effusion. However no leukocytosis, no fever. Patient was diuresed with Lasix with good response. Shortness of breath improved. No leukocytosis, no fever, Unasyn was stopped. Patient remained stable. Patient had mild troponin elevation which was thought to be demand mediated. He also had mild altered mental status which was thought to be secondary to hypoxemia. This resolved with improvement of his respiratory status. Tramadol and Ativan were stopped. Lasix was decreased and switched to oral. He will continue Lasix, Coreg, aspirin, Imdur, and Plavix. Cardiology and nephrology were consulted throughout the admission. Patient's kidney function improved with diuresis. Patient will be discharged to acute rehab or to a residential to continue therapy. Patient is DNR/DNI. - Time Spent with Patient Total time spent providing and/or coordinating discharge services: Greater than 30 minutes - Quality: VTE Deep Vein Thrombosis/Pulmonary Embolism Present on Admission: No Exam Vital signs: Vital Signs 04/20/18 15:00 04/20/18 16:00 04/20/18 17:00 Temperature 98 F Pulse Rate 80 79 79 Respiratory Rate 16 Blood Pressure 121/48 L Pulse Oximetry 97 04/20/18 18:00 04/20/18 19:00 04/20/18 20:00 Temperature 97.4 F L Pulse Rate 80 80 80 Respiratory Rate 18 Blood Pressure 135/63 Pulse Oximetry 93 L 04/20/18 21:00 04/20/18 22:00 04/20/18 23:00 Temperature 97.9 F Pulse Rate 80 79 79 Respiratory Rate 16 Blood Pressure Pulse Oximetry 97 04/21/18 00:00 04/21/18 01:00 04/21/18 02:00 Temperature Pulse Rate 79 79 79 Respiratory Rate Blood Pressure Pulse Oximetry 04/21/18 03:00 04/21/18 04:00 04/21/18 05:00 Temperature 97.7 F Pulse Rate 80 79 74 Respiratory Rate 18 Blood Pressure 122/65 Pulse Oximetry 97 04/21/18 06:00 04/21/18 07:00 04/21/18 08:00 Temperature 97.9 F Pulse Rate 79 79 79 Respiratory Rate 16 Blood Pressure 127/60 Pulse Oximetry 100 04/21/18 09:00 04/21/18 10:00 04/21/18 11:00 Temperature 98 F Pulse Rate 79 79 80 Respiratory Rate 17 Blood Pressure 97/56 L Pulse Oximetry 98 04/21/18 12:00 04/21/18 13:00 04/21/18 14:00 Temperature Pulse Rate 80 79 79 Respiratory Rate Blood Pressure Pulse Oximetry Intake & Output 04/20/18 04/21/18 04/21/18 18:59 06:59 18:59 Intake Total 240 / 240 240 / 240 Output Total 650 / 650 600 / 600 Balance -410 / -410 -360 / -360 Weight 74.5 kg Intake: Oral 240 / 240 240 / 240 Output: Urine 650 / 650 Urine Amount (Catheter) 600 / 600 Indwelling Urethral Catheter 600 / 600 Other: Date of Last Bowel Movement 04/20/18 04/20/18 04/21/18 # Bowel Movements 3 # Incontinent Bowel Movements 4 Results Procedures completed during hospitalization: none Labs on day of discharge: Labs from last 24 hours 04/21/18 04/21/18 04/21/18 11:32 07:49 04:55 Sodium Potassium Chloride Carbon Dioxide Anion Gap BUN Creatinine Estimated GFR POC Glucose 269 H 105 Random Glucose Calcium B-Natriuretic Peptide 1750 H 04/21/18 04/20/18 04/20/18 04:55 20:51 16:58 Sodium 141 Potassium 3.4 L Chloride 104 Carbon Dioxide 27.8 Anion Gap 9 BUN 41 H Creatinine 1.53 H Estimated GFR 44 L POC Glucose 199 H 250 H Random Glucose 74 Calcium 7.9 L B-Natriuretic Peptide - Impressions ITS Impressions Pulmonary Perfusion Imaging 04/17/18 00:00 CONCLUSION: 1. Low probability of pulmonary embolism Chest X-Ray 04/18/18 00:00 CONCLUSION: Stable appearance of the chest. Venous Doppler Study 04/21/18 00:00 CONCLUSION: 1. No evidence of DVT. Discharge Plan - Discharge Disposition Patient Disposition: [facility] Rehab Inpatient - Discharge Condition Condition: Good - Discharge Order Discharge Orders: Discharge Order (Routine); Ordered 04/21/18 Ordered By: Yesenia Escamilla - Discharge Details Anticipated Discharge Date: 04/21/18 Discharge Comment: d/c back to [facility] after seen and cleared by Dr. Russell and if left UE US is negative - Physicians Team Primary Care Provider: UNKNOWN, Attending Provider: Yesenia Escamilla Other Providers: Aneesh Lowery MD ; [facility] - Rxs /Orders / Referrals /Forms Prescriptions: New amlodipine [Norvasc] 5 mg Tablet 2.5 mg PO DAILY RF: 0 carvedilol [Coreg] 6.25 mg Tablet 6.25 mg PO BID RF: 0 furosemide 40 mg Tablet 40 mg PO DAILY RF: 0 insulin detemir U-100 [Levemir U-100 Insulin] 100 unit/mL Solution 14 unit Sub-Q DAILY RF: 0 Continue acetaminophen 325 mg Tablet 650 mg PO Q4H PRN (Reason: Pain Scale 1 To 4/Cough) RF: 0 aspirin 81 mg Tablet,Chewable 81 mg PO DAILY RF: 0 bisacodyl [Bisac-Evac] 10 mg Suppository 10 mg GA Q48H RF: 0 clopidogrel [Plavix] 75 mg Tablet 75 mg PO DAILY RF: 0 famotidine 20 mg Tablet 10 mg PO BID RF: 0 gabapentin 100 mg Capsule 200 mg PO DAILY RF: 0 insulin aspart U-100 [Novolog U-100 Insulin aspart] 100 unit/mL Solution 5 units Sub-Q TIDAC RF: 0 ipratropium-albuterol 0.5 mg-3 mg(2.5 mg base)/3 mL Solution For Nebulization 1 amp NEB Q4HR NEB PRN (Reason: Dyspnea) RF: 0 isosorbide mononitrate 30 mg Tablet Extended Release 24 Hr 30 mg PO DAILY@0700 RF: 0 lactulose 20 gram/30 mL Solution 30 ml PO DAILY PRN (Reason: Severe Consitipation) RF: 0 lisinopril 5 mg Tablet 5 mg PO DAILY RF: 0 magnesium hydroxide [Milk of Magnesia] 400 mg/5 mL Suspension 30 ml PO Q12H PRN (Reason: Mild Constipation) RF: 0 melatonin 5 mg Tablet 5 mg PO HS RF: 0 nystatin 100,000 unit/mL Suspension 5 ml SWISH-SWAL QID RF: 0 sennosides [Senna Lax] 8.6 mg Tablet 17.2 mg PO Q12H PRN (Reason: Moderate Constipation) RF: 0 sennosides-docusate sodium [Senna Plus] 8.6-50 mg Tablet 1 tab PO BID RF: 0 sodium bicarbonate 650 mg Tablet 650 mg PO TIDPC RF: 0 tamsulosin 0.4 mg Capsule,Extended Release 24hr 0.4 mg PO DAILY RF: 0 white petrolatum [Aquaphor Healing] 41 % Ointment 1 applicatio Topical BID RF: 0 Discontinued amlodipine [Norvasc] 5 mg Tablet 2.5 mg PO DAILY RF: 0 amoxicillin-pot clavulanate 875-125 mg Tablet 1 tab PO Q12HR RF: 0 carvedilol [Coreg] 3.125 mg Tablet 6.25 mg PO BID RF: 0 dextran 70-hypromellose [Artificial Tears (PF)] Dropperette 1 drp LEFT EYE QID PRN (Reason: Dry Eyes) dextrose 50 % in water (D50W) Parenteral Solution 50 ml IV.PUSH UNSCH PRN (Reason: Per Hypoglycemia Protocol) RF: 0 furosemide 10 mg/mL Solution 20 mg IV.PUSH BID@0900,1800 RF: 0 glucagon (human recombinant) [GlucaGen Diagnostic Kit] 1 mg/mL Recon Soln 1 mg OTHER PRN PRN (Reason: for Hypoglycemia Protocol) RF: 0 heparin (porcine) 10,000 unit/mL Solution 5,000 units Sub-Q Q12H RF: 0 insulin aspart U-100 [Novolog U-100 Insulin aspart] 100 unit/mL Solution 0 unit Sub-Q ACHS RF: 0 insulin detemir U-100 [Levemir U-100 Insulin] 100 unit/mL Solution 10 unit Sub-Q DAILY RF: 0 lorazepam 0.5 mg Tablet 0.5 mg PO Q6H PRN (Reason: Anxiety) RF: 0 tramadol [Ultram] 50 mg Tablet 50 mg PO Q6H PRN (Reason: Pain Scale 5-10/Severe Cough) RF: 0 Referrals: UNKNOWN, [Primary Care Provider] - See Instructions - Discharge Instructions Patient Printed Instructions: Heart Failure (DC)
[2018-04-21] MEDS: Melatonin 5 MG Tablet PO SCH (21:32)
[2018-04-22 03:24] VITALS: RESP 16
[2018-04-22 05:36] LABS: Calcium 7.8 mg/dL (8.5-10.1); Carbon Dioxide 29.1 meq/L (21.0-32.0); Potassium 3.7 meq/L (3.5-5.1)
[2018-04-22] MEDS: Isosorbide Mononitrate 30 MG ER 24HR Tablet (Imdur) PO SCH (06:08)
[2018-04-22] MEDS: Acetaminophen 325 MG Tablet PO PRN (09:31)
[2018-04-22] MEDS: Carvedilol 6.25 MG Tablet PO SCH (09:31)
[2018-04-22] MEDS: Insulin NovoLOG Aspart Correctional Sugar Inj SQ SCH ×2 (09:31→14:00)
[2018-04-22] MEDS: Nystatin Liq 500,000 UNIT/5 ML UDC SWISH-SWAL SCH ×2 (09:31→14:01)
[2018-04-22] MEDS: Heparin - SQ 10,000 UNITS/ML Vial SQ SCH (09:37)
[2018-04-22] MEDS: Insulin Detemir Inj 1,000 UNIT/10 ML Vial SQ SCH (09:37)
[2018-04-22] MEDS: amLODIPine 5 MG Tablet PO SCH (09:45)
[2018-04-22] MEDS: Furosemide 40 MG Tablet PO SCH (09:46)
[2018-04-22] MEDS: Famotidine 20 MG Tablet PO SCH (09:47)
[2018-04-22] MEDS: Sodium Bicarbonate 650 MG Tablet PO SCH ×2 (09:48→14:01)
[2018-04-22] MEDS: Senna/Docusate Sodium 8.6/50 MG Tablet PO SCH (09:48)
[2018-04-22] MEDS: Lisinopril 5 MG Tablet PO SCH (09:48)
--- NOTE | 2018-04-22 10:12 | P.PNNP ---
Subjective Interval history: Resting comfortably with family at bedside. No acute events overnight. Creatinine is stable at 1.54 today. <Mary Beth Live - Last Filed: 04/22/18 10:07> Physical Exam Vital signs: Vital Signs 04/21/18 11:00 04/21/18 12:00 04/21/18 13:00 Temperature 98 F Pulse Rate 80 80 79 Respiratory Rate 17 Blood Pressure 97/56 L Pulse Oximetry 98 04/21/18 14:00 04/21/18 15:00 04/21/18 16:00 Temperature 98.1 F Pulse Rate 79 79 79 Respiratory Rate 16 Blood Pressure 98/54 L Pulse Oximetry 99 04/21/18 17:00 04/21/18 17:48 04/21/18 19:00 Temperature 98.6 F Pulse Rate 79 79 79 Respiratory Rate 16 Blood Pressure 110/55 L Pulse Oximetry 96 04/21/18 20:00 04/21/18 21:00 04/21/18 22:00 Temperature Pulse Rate 79 80 80 Respiratory Rate Blood Pressure Pulse Oximetry 04/21/18 23:00 04/22/18 00:00 04/22/18 01:00 Temperature 98 F Pulse Rate 79 80 79 Respiratory Rate 14 Blood Pressure 110/55 L Pulse Oximetry 97 04/22/18 02:00 04/22/18 03:00 04/22/18 04:00 Temperature 98.1 F Pulse Rate 80 79 81 Respiratory Rate 16 Blood Pressure 156/76 H Pulse Oximetry 97 04/22/18 05:00 04/22/18 06:00 04/22/18 07:00 Temperature 97.3 F L Pulse Rate 80 79 79 Respiratory Rate 16 Blood Pressure 126/59 L Pulse Oximetry Intake & Output 04/21/18 04/22/18 04/22/18 18:59 06:59 18:59 Intake Total 720 / 720 240 / 240 Output Total 425 / 425 600 / 600 Balance 295 / 295 -360 / -360 Weight 75 kg Intake: Oral 720 / 720 240 / 240 Output: Urine Amount (Catheter) 425 / 425 600 / 600 Indwelling Urethral Catheter 425 / 425 600 / 600 Other: Date of Last Bowel Movement 04/21/18 04/21/18 # Incontinent Bowel Movements 3 Narrative: GENERAL: Awake and alert, no distress. Family at the bedside. SKIN: Warm and dry. HEENT: Normocephalic. Right pupil nonreactive, blind. NECK: Trachea midline. CARDIOVASCULAR: Regular rate, rhythm. No gallops, or rubs. Flow murmur over the aortic valve. PPM site Right SC. Left SC Incision site CDI. No edema. RESPIRATORY: Respirations even and unlabored. Breath sounds diminished bases bilaterally. Room air. GASTROINTESTINAL: Abdomen soft, non-tender, nondistended. Bowel Sounds normoactive x4. MUSCULOSKELETAL: Extremities without clubbing, cyanosis. BUE weakness. NEUROLOGICAL: Awake and alert. Normal speech. - Urinary Catheter Management Indwelling Urethral Catheter Cath placed during this visit: yes Reason for continuing: Acute urinary retention Insertion date: 04/16/18 Insertion time: 21:00 <Mary Beth Live - Last Filed: 04/22/18 10:07> Vital signs: Vital Signs 04/21/18 11:00 04/21/18 12:00 04/21/18 13:00 Temperature 98 F Pulse Rate 80 80 79 Respiratory Rate 17 Blood Pressure 97/56 L Pulse Oximetry 98 04/21/18 14:00 04/21/18 15:00 04/21/18 16:00 Temperature 98.1 F Pulse Rate 79 79 79 Respiratory Rate 16 Blood Pressure 98/54 L Pulse Oximetry 99 04/21/18 17:00 04/21/18 17:48 04/21/18 19:00 Temperature 98.6 F Pulse Rate 79 79 79 Respiratory Rate 16 Blood Pressure 110/55 L Pulse Oximetry 96 04/21/18 20:00 04/21/18 21:00 04/21/18 22:00 Temperature Pulse Rate 79 80 80 Respiratory Rate Blood Pressure Pulse Oximetry 04/21/18 23:00 04/22/18 00:00 04/22/18 01:00 Temperature 98 F Pulse Rate 79 80 79 Respiratory Rate 14 Blood Pressure 110/55 L Pulse Oximetry 97 04/22/18 02:00 04/22/18 03:00 04/22/18 04:00 Temperature 98.1 F Pulse Rate 80 79 81 Respiratory Rate 16 Blood Pressure 156/76 H Pulse Oximetry 97 04/22/18 05:00 04/22/18 06:00 04/22/18 07:00 Temperature 97.3 F L Pulse Rate 80 79 79 Respiratory Rate 16 Blood Pressure 126/59 L Pulse Oximetry Intake & Output 04/21/18 04/22/18 04/22/18 18:59 06:59 18:59 Intake Total 720 / 720 240 / 240 Output Total 425 / 425 600 / 600 Balance 295 / 295 -360 / -360 Weight 75 kg Intake: Oral 720 / 720 240 / 240 Output: Urine Amount (Catheter) 425 / 425 600 / 600 Indwelling Urethral Catheter 425 / 425 600 / 600 Other: Date of Last Bowel Movement 04/21/18 04/21/18 # Incontinent Bowel Movements 3 - Urinary Catheter Management Indwelling Urethral Catheter Cath placed during this visit: no <Drew Murphy S - Last Filed: 04/22/18 10:40> Assessment and Plan - Assessment (1) LILIAN (acute kidney injury) Code(s): N17.9 - Acute kidney failure, unspecified Status: Acute Plan: Acute kidney injury on chronic kidney disease. The patient had a baseline creatinine apparently between 1.5 and 1.6 prior to transcatheter aortic valve replacement procedure last month. Subsequently, the patient had a cardiac arrest and cerebrovascular accident. Since then while in rehab his creatinine ranged between 1.9 and 2.1 from 04/09/2018. Renal ultrasound with no hydronephrosis or mass Creatinine 2.0 -> 1.8 ->1.5 ->1.5 Non oliguric Apparent cardiorenal component of LILIAN Continue to diurese as tolerated. May be near baseline renal function. Recommend to continue Nephrotoxins as possible Continue diuresis tolerating well Continue lisinopril with recent AR Plan to transfer to [facility] Monitor BMP periodically. (2) S/P TAVR (transcatheter aortic valve replacement) Code(s): Z95.2 - Presence of prosthetic heart valve Status: Chronic Plan: The patient has a 20% ejection fraction. He is status post transaortic valve replacement on 03/30/2018, complicated by myocardial infarction and cerebrovascular accident. Continue to follow up with cardiology (3) Hyperkalemia Code(s): E87.5 - Hyperkalemia Status: Acute Plan: History of hyperkalemia. The patient had initial hyperkalemia while in [facility]. His potassium levels have improved. Likely improvement with diuresis. Continue to monitor at this point. (4) Urinary retention Code(s): R33.9 - Retention of urine, unspecified Status: Acute Plan: Continue Flomax. The patient has a penile implant. He currently has a Badillo catheter in place. Continue Badillo catheter for now. The patient is urinating well. <Mary Beth Live - Last Filed: 04/22/18 10:07> - Assessment (1) LILINA (acute kidney injury) Code(s): N17.9 - Acute kidney failure, unspecified Status: Acute (2) S/P TAVR (transcatheter aortic valve replacement) Code(s): Z95.2 - Presence of prosthetic heart valve Status: Chronic (3) Hyperkalemia Code(s): E87.5 - Hyperkalemia Status: Acute (4) Urinary retention Code(s): R33.9 - Retention of urine, unspecified Status: Acute - Attending Attestation Patient seen and examined; records reviewed; agree with the plan and recommendations of the [employer] TECHNICIAN <Drew Murphy - Last Filed: 04/22/18 10:40>
[2018-04-22 14:21] VITALS: BP 153/67; TEMP 98.2; O2SAT 100
--- NOTE | 2018-04-22 14:23 | P.PNIM ---
Subjective Interval history: Follow-up for shortness of breath Shortness of breath a lot better, no overnight events, no chest pain. More oriented today. Physical Exam Vital signs: Vital Signs 04/21/18 15:00 04/21/18 16:00 04/21/18 17:00 Temperature 98.1 F Pulse Rate 79 79 79 Respiratory Rate 16 Blood Pressure 98/54 L Pulse Oximetry 99 04/21/18 17:48 04/21/18 19:00 04/21/18 20:00 Temperature 98.6 F Pulse Rate 79 79 79 Respiratory Rate 16 Blood Pressure 110/55 L Pulse Oximetry 96 04/21/18 21:00 04/21/18 22:00 04/21/18 23:00 Temperature 98 F Pulse Rate 80 80 79 Respiratory Rate 14 Blood Pressure 110/55 L Pulse Oximetry 97 04/22/18 00:00 04/22/18 01:00 04/22/18 02:00 Temperature Pulse Rate 80 79 80 Respiratory Rate Blood Pressure Pulse Oximetry 04/22/18 03:00 04/22/18 04:00 04/22/18 05:00 Temperature 98.1 F Pulse Rate 79 81 80 Respiratory Rate 16 Blood Pressure 156/76 H Pulse Oximetry 97 04/22/18 06:00 04/22/18 07:00 04/22/18 08:00 Temperature 97.3 F L Pulse Rate 79 79 79 Respiratory Rate 16 Blood Pressure 126/59 L Pulse Oximetry 04/22/18 09:00 04/22/18 11:00 04/22/18 11:17 Temperature 98.2 F Pulse Rate 80 80 Respiratory Rate 17 16 Blood Pressure 153/67 H Pulse Oximetry 100 Intake & Output 04/21/18 04/22/18 04/22/18 18:59 06:59 18:59 Intake Total 720 / 720 240 / 240 Output Total 425 / 425 600 / 600 Balance 295 / 295 -360 / -360 Weight 75 kg Intake: Oral 720 / 720 240 / 240 Output: Urine Amount (Catheter) 425 / 425 600 / 600 Indwelling Urethral Catheter 425 / 425 600 / 600 Other: Date of Last Bowel Movement 04/21/18 04/21/18 # Incontinent Bowel Movements 3 Narrative: Not in distress, alert, awake Pupils equal round reactive, anicteric Moist mucosa Regular rate and rhythm, positive murmur Clear breath sounds, decreased on the left base, no crackles or wheezing. Abdomen soft nontender, nondistended No edema lower extremities, +1 edema left forearm almost resolved. Alert, awake, oriented to self, year but not to place, he thinks he is in [place]. He just moved to [place]. Moves extremities. Positive for generalized weakness - Urinary Catheter Management Indwelling Urethral Catheter Cath placed during this visit: yes, but has since been removed by the nurse Reason for continuing: Acute urinary retention Insertion date: 04/16/18 Insertion time: 21:00 Removal date: 04/22/18 Removal time: 09:15 Results - Labs CBC & Chem 7: 04/19/18 03:47 04/22/18 04:39 Laboratory Results - last 24 hr 04/21/18 04/21/18 04/22/18 17:21 20:32 04:39 Sodium Potassium Chloride Carbon Dioxide Anion Gap BUN Creatinine Estimated GFR POC Glucose 179 H 198 H Random Glucose Calcium B-Natriuretic Peptide 1715 H 04/22/18 04/22/18 04/22/18 04:39 07:39 11:10 Sodium 141 Potassium 3.7 Chloride 104 Carbon Dioxide 29.1 Anion Gap 8 BUN 43 H Creatinine 1.54 H Estimated GFR 43 L POC Glucose 123 H 269 H Random Glucose 85 Calcium 7.8 L B-Natriuretic Peptide - Procedures none Assessment and Plan - Assessment (1) S/P TAVR (transcatheter aortic valve replacement) Code(s): Z95.2 - Presence of prosthetic heart valve Status: Chronic (2) LILIAN (acute kidney injury) Code(s): N17.9 - Acute kidney failure, unspecified Status: Acute (3) Systolic dysfunction with acute on chronic heart failure Code(s): I50.23 - Acute on chronic systolic (congestive) heart failure Status : Acute (4) CAD (coronary artery disease) Code(s): I25.10 - Atherosclerotic heart disease of [place] coronary artery without angina pectoris Status: Acute - Plan 82-year-old male with significant history of CAD, CABG in 1987, CHF, DM, status post TAVR at [facility] on 03/30 for symptomatic aortic stenosis with complications of intraoperative cardiac arrest, respiratory failure, pneumonia. Admitted to [facility] for comprehensive rehabilitation, transferred to the hospital for shortness of breath and altered mental status. Pneumonia versus systolic congestive heart failure exacerbation - Previously admitted for respiratory failure, Echo shows EF of 20% elevated BNPs, Repeat chest x-ray showed worsening consolidation on the left and bilateral pleural effusion, s/p thoracentesis for right pleural effusion, 1000 cc removed. No leukocytosis, no fever, Unasyn stopped. Chest x-ray stable. Good response to diuresis, continue Lasix 40 mg daily Coreg, senna, aspirin, Imdur, Plavix, oxygen support. Kidney function improving. Cleared by cardiology for discharge. s/p T AVR/cardiac arrest 2 03/30/2018, CAD Previously patient had PPD for symptomatic bradycardia, CABG 4 in 1987, medications as above. Previous chest pain, troponins flat, peaked at 0.2. 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 -Continue blood pressure control, continue aspirin and Plavix. Hypertension-continue Norvasc, Coreg, lisinopril and Lasix Altered mental status-likely toxic metabolic encephalopathy from hypoxemia, stopped tramadol and Ativan. Almost resolved. Acute on chronic renal disease -According to records baseline creatinine is 1.6, kidney function stable, cleared for discharge. Type 2 diabetes-blood glucose elevated, continue Levemir to 14 units daily, continue diabetic diet. Continue sliding scale insulin. Urinary retention - History of penile implant. Badillo recently discontinued, urine cultures negative, remove Badillo catheter today, straight cath as needed, Continue Flomax Left upper extremity swelling-improving, likely secondary to extravasation, ultrasound of the left upper extremity negative for DVT. DVT Prophylaxis Heparin Code Status: Patient's requests DNI, but allows DNR, palliative care was following Discharge back to [facility] versus nursing home facility (4) CAD (coronary artery disease) Qualifiers: Coronary Disease-Associated Artery/Lesion type: [place] artery [place] vs. transplanted heart: [place] heart Associated angina: without angina Qualified Code(s): I25.10 - Atherosclerotic heart disease of [place] coronary artery without angina pectoris
[2018-04-22 14:32] VITALS: PULSE 79
== END 2018-04-22 15:20 ==
LOC: N04 15:00 → HCVI 04-17 19:37 → HCPC 04-19 09:17
PROVIDERS: ADMIT Hospitalist; ATTEND Hospitalist